=== PATIENT | male | born 1940 | race American Indian/Alaskan Native ===

== ENCOUNTER 2017-11-03 00:48 | Inpatient (IN) | payer MEDICARE ==
[2017-11-03] MEDS ORDERED: PROVENTIL IH ONE (01:02)
--- NOTE | 2017-11-03 01:26 | Emergency Department Report ---
ED Shortness of Breath HPI - General Stated Complaint: MAYRA Time Seen by Provider: 11/03/17 01:02 - History of Present Illness Initial Comments: Patient is a 76-year-old Male past history of COPD who is presenting with shortness of breath. Patient states shortness breath started today. Patient has mild cough. Patient denies any fevers chills body aches at this time. Patient states he used a couple puffs of his albuterol inhaler which did not help. Patient also states that his bilateral legs have been more swollen today and his shortness of breath was worse when he tried to lay down to go to sleep which prompted him to call 911. MD Complaint: shortness of breath, cough Known History Of: COPD Treatments Prior to Arrival: bronchodilator (patient received 1 vial of albuterol nebulized Solu-Medrol and magnesium before arrival. Patient is paramedics state that the patient had decreased breath sounds and was speaking in only 1-2 word sentences) - Related Data Allergies Allergy/AdvReac Type Severity Reaction Status Date / Time No Known Allergies Allergy Unverified 11/03/17 01:36 ED Review of Systems ROS: Stated complaint: MAYRA Other details as noted in HPI Comment: All other systems reviewed and negative ED Physical Exam - General General appearance: alert, in no apparent distress - Head Head exam: Present: atraumatic, normocephalic - Eye Eye exam: Present: normal appearance - ENT ENT exam: Present: mucous membranes moist - Neck Neck exam: Present: normal inspection - Respiratory Respiratory exam: Present: normal lung sounds bilaterally, wheezes (prolonged expiratory phase). Absent: respiratory distress, rales, rhonchi - Cardiovascular Cardiovascular Exam: Present: regular rate, normal rhythm. Absent: systolic murmur, diastolic murmur, rubs, gallop - GI/Abdominal GI/Abdominal exam: Present: soft, distended, normal bowel sounds. Absent: tenderness, guarding, rebound - Rectal Rectal exam: Present: deferred - Extremities Exam Extremities exam: Present: normal inspection, pedal edema (A she has edema to the knees is pitting 2+) - Back Exam Back exam: Present: normal inspection - Neurological Exam Neurological exam: Present: alert, oriented X3 - Psychiatric Psychiatric exam: Present: normal affect, normal mood - Skin Skin exam: Present: warm, dry, intact, normal color. Absent: rash ED Course Vital Signs 11/03/17 11/03/17 11/03/17 01:17 01:28 01:30 Temperature 98 F Pulse Rate 87 80 Respiratory 16 22 Rate Blood Pressure 177/103 O2 Sat by Pulse 91 Oximetry 11/03/17 01:33 Temperature Pulse Rate Respiratory 20 Rate Blood Pressure O2 Sat by Pulse 96 Oximetry ED Medical Decision Making - Lab Data Result diagrams: 11/03/17 01:47 11/03/17 01:43 Lab Results 11/03/17 11/03/17 11/03/17 Range/Units 01:43 01:43 01:43 WBC (4.5-11.0) K/mm3 RBC (3.65-5.03) M/mm3 Hgb (11.8-15.2) gm/dl Hct (35.5-45.6) % MCV (84-94) fl MCH (28-32) pg MCHC (32-34) % RDW (13.2-15.2) % Plt Count (140-440) K/mm3 Lymph % (Auto) (13.4-35.0) % Walsh % (Auto) (0.0-7.3) % Eos % (Auto) (0.0-4.3) % Baso % (Auto) (0.0-1.8) % Lymph # (1.2-5.4) K/mm3 Walsh # (0.0-0.8) K/mm3 Eos # (0.0-0.4) K/mm3 Baso # (0.0-0.1) K/mm3 Seg Neutrophils % (40.0-70.0) % Seg Neutrophils # (1.8-7.7) K/mm3 D-Dimer 439.92 H (0-234) ng/mlDDU Sodium 142 (137-145) mmol/L Potassium 4.8 (3.6-5.0) mmol/L Chloride 108.5 H (98-107) mmol/L Carbon Dioxide 17 L (22-30) mmol/L Anion Gap 21 mmol/L BUN 65 H (9-20) mg/dL Creatinine 5.6 H (0.8-1.5) mg/dL Estimated GFR 12 ml/min BUN/Creatinine Ratio 12 % Glucose 114 H (75-100) mg/dL Calcium 8.3 L (8.4-10.2) mg/dL Total Bilirubin 0.20 (0.1-1.2) mg/dL AST 13 (5-40) units/L ALT 11 (7-56) units/L Alkaline Phosphatase 138 H (35-129) units/L Troponin T 0.020 (0.00-0.029) ng/mL NT-Pro-B Natriuret Pep 2809 H (0-900) pg/mL Total Protein 7.6 (6.3-8.2) g/dL Albumin 3.3 L (3.9-5) g/dL Albumin/Globulin Ratio 0.8 % 11/03/17 Range/Units 01:47 WBC 7.1 (4.5-11.0) K/mm3 RBC 4.98 (3.65-5.03) M/mm3 Hgb 14.6 (11.8-15.2) gm/dl Hct 44.6 (35.5-45.6) % MCV 90 (84-94) fl MCH 29 (28-32) pg MCHC 33 (32-34) % RDW 16.6 H (13.2-15.2) % Plt Count 233 (140-440) K/mm3 Lymph % (Auto) 12.7 L (13.4-35.0) % Walsh % (Auto) 7.8 H (0.0-7.3) % Eos % (Auto) 2.1 (0.0-4.3) % Baso % (Auto) 1.0 (0.0-1.8) % Lymph # 0.9 L (1.2-5.4) K/mm3 Walsh # 0.6 (0.0-0.8) K/mm3 Eos # 0.1 (0.0-0.4) K/mm3 Baso # 0.1 (0.0-0.1) K/mm3 Seg Neutrophils % 76.4 H (40.0-70.0) % Seg Neutrophils # 5.4 (1.8-7.7) K/mm3 D-Dimer (0-234) ng/mlDDU Sodium (137-145) mmol/L Potassium (3.6-5.0) mmol/L Chloride (98-107) mmol/L Carbon Dioxide (22-30) mmol/L Anion Gap mmol/L BUN (9-20) mg/dL Creatinine (0.8-1.5) mg/dL Estimated GFR ml/min BUN/Creatinine Ratio % Glucose (75-100) mg/dL Calcium (8.4-10.2) mg/dL Total Bilirubin (0.1-1.2) mg/dL AST (5-40) units/L ALT (7-56) units/L Alkaline Phosphatase (35-129) units/L Troponin T (0.00-0.029) ng/mL NT-Pro-B Natriuret Pep (0-900) pg/mL Total Protein (6.3-8.2) g/dL Albumin (3.9-5) g/dL Albumin/Globulin Ratio % - Radiology Data Radiology results: report reviewed Cardiomegaly with pulmonary vascular congestion consistent with CHF - Medical Decision Making Condition is a 76-year-old -[place]anese male who is presenting with dyspnea and leg swelling patient once he was on oxygen here after getting a breathing treatment did state that he has had some decreased urinary output he does have a history of congestive heart failure and is on Lasix however he doesn't feel as though the Lasix is having him go to the bathroom very much. Patient states he's been told that his kidneys are weak but does not know what stage of renal insufficiency he has. Patient's. Creatinine today is 6505.6 there is no reference point in the system for him. Patient's BNP is elevated at 2809. Patient will be admitted to the hospitalist service. Lasix has been given to see if the patient can diurese patient is also given neb treatment for his wheezing. Patient will need nephrology consult in the morning. Dr. Hewitt nephrology has been consult and states she will place orders on the patient is a nephrology consult. Patient will be admitted to the hospitalist service at this time. Critical Care Time: Yes Critical care time in (mins) excluding proc time.: 30 Critical care attestation.: If time is entered above; I have spent that time in minutes in the direct care of this critically ill patient, excluding procedure time. ED Disposition Clinical Impression: Respiratory distress, Hypertensive emergency Congestive heart failure Qualifiers: Congestive heart failure type: unspecified Congestive heart failure chronicity : acute on chronic Qualified Code(s): I50.9 - Heart failure, unspecified Renal failure Qualifiers: Renal failure chronicity: acute on chronic Acute renal failure type: unspecified Chronic kidney disease stage: unspecified stage Qualified Code(s): N17.9 - Acute kidney failure, unspecified; N18.9 - Chronic kidney disease, unspecified; N18.9 - Chronic kidney disease, unspecified Disposition: OP ADMIT IP TO THIS HOSP Is pt being admited?: Yes Does the pt Need Aspirin: No Condition: Stable
--- NOTE | 2017-11-03 01:32 | XRay Report ---
FINAL REPORT EXAM: XR CHEST 1V AP HISTORY: Dyspnea TECHNIQUE: A portable upright view the chest was submitted. There are no previous studies available for comparison. FINDINGS: The heart is [id number] enlarged. The lungs are diffusely congested. There is patchy airspace disease in both lung bases and in the perihilar areas. The skeletal structures reveal generalized osteoporosis. IMPRESSION: [id number]-[id number] cardiomegaly with pulmonary vascular congestion. Patchy airspace disease in both lung bases.
[2017-11-03 02:05] LABS: Basophils # (Auto) 0.1 K/mm3 (0.0-0.1); Eosinophils # (Auto) 0.1 K/mm3 (0.0-0.4); Eosinophils % (Auto) 2.1 % (0.0-4.3); Hematocrit 44.6 % (35.5-45.6); Hemoglobin 14.6 gm/dl (11.8-15.2); Lymphocytes # (Auto) 0.9 K/mm3 (1.2-5.4); Lymphocytes % (Auto) 12.7 % (13.4-35.0); Mean Corpuscular HGB Conc 33 % (32-34); Mean Corpuscular Hemoglobin 29 pg (28-32); Mean Corpuscular Volume 90 fl (84-94); Monocytes # (Auto) 0.6 K/mm3 (0.0-0.8); Monocytes % (Auto) 7.8 % (0.0-7.3); Platelet Count 233 K/mm3 (140-440); Red Blood Count 4.98 M/mm3 (3.65-5.03); Red Cell Distribution Width 16.6 % (13.2-15.2)
[2017-11-03] MEDS ORDERED: LASIX IV ONE (02:14)
[2017-11-03 02:20] LABS: Albumin 3.3 g/dL (3.9-5); Calcium 8.3 mg/dL (8.4-10.2)
--- NOTE | 2017-11-03 07:49 | History and Physical Report ---
History of Present Illness Date of examination: 11/03/17 Date of admission: 11/03/17 03:27 Chief complaint: Shortness of breath History of present illness: 76 year old -[place]ajik male with past medical history significant for CHF , hypertension presented to the emergency department complaining of shortness of breath that started last night. Shortness of breath happened while the patient is trying to go to bed. Shortness of breath is getting worse with exertion no alleviating factors identified. Patient admitted for wheezing, cough and bilateral leg swelling. Patient denied chest pain, nausea, vomiting. Patient had history of CHF and stop taking medications 2 years ago. Didn't see a doctor for the last 2 years. REVIEW OF SYSTEMS: GENERAL: no weight change, no fatigue, no fever HEAD: no head ache EYES: no blurry vision, no acute visual loss EARS: no hearing loss, no discharge, no earache NOSE: no stuffiness, no sneezing, no discharge MOUTH, THROAT AND NECK: no bleeding gums, no sore throat, no swollen neck CARDIAC: no palpitations, + dyspnea on exertion, no orthopnea, no PND, + edema, no chest pain RESPIRATORY: + shortness of breath, + wheeze, dry cough, no sputum, no hemoptysis, no asthma GI: no decreased appetite, no nausea, no vomiting, no dysphagia, no diarrhea, no constipation, no abdominal pain URINARY: no change in frequency, no urgency, no polyuria, no hematuria, no incontinence MUSCULOSKELETAL: no muscle weakness, no pain, no joint stiffness NEUROLOGIC: no loss of sensation/numbness, no tingling, no tremors, no weakness/ paralysis HEMATOLOGIC: no anemia, no easy bruising SKIN: no rashes ENDOCRINE: no heat/cold intolerance, no polyuria, no polydipsia, no thyroid problems, no diabetes PSYCHIATRIC: no anxiety, no depression, no suicidal ideations Past History Past Medical History: heart failure, hypertension Past Surgical History: No surgical history Social history: smoking (half pack cigarettes a day), full code. denies: alcohol abuse, prescription drug abuse, IV drug use Family history: no significant family history Medications and Allergies Allergies Allergy/AdvReac Type Severity Reaction Status Date / Time No Known Allergies Allergy Unverified 11/03/17 01:36 Home Medications Medication Instructions Recorded Confirmed Last Taken Type Acetaminophen [Shake That Ache] 500 mg PO Q6H 11/03/17 11/03/17 Unknown History Albuterol Sulfate [Ventolin HFA] 2 puff IH Q4H PRN 11/03/17 11/03/17 11/02/17 History Allopurinol 300 mg PO DAILY 11/03/17 11/03/17 11/02/17 History Carvedilol [Coreg] 25 mg PO BID 11/03/17 11/03/17 11/02/17 History Fluticasone [Flonase] 1 spray NS QDAY 11/03/17 11/03/17 11/02/17 History Loratadine [Claritin] 10 mg PO DAILY 11/03/17 11/03/17 11/02/17 History Losartan [Cozaar] 100 mg PO QDAY 11/03/17 11/03/17 11/02/17 History Tamsulosin [Flomax] 0.4 mg PO QDAY 11/03/17 11/03/17 11/02/17 History amLODIPine [Norvasc] 10 mg PO DAILY 11/03/17 11/03/17 11/02/17 History Active Meds: Active Medications Heparin Sodium (Porcine) (Heparin) 5,000 unit SUB-Q Q8HR LYUDMILA Exam - Physical Exam Narrative exam: Not in cardiopulmonary distress. The patient appeared well nourished and normally developed. Vital signs as documented. Head exam is unremarkable. No scleral icterus . Neck is without jugular venous distension, thyromegaly, or carotid bruits. Lungs are clear to auscultation. Cardiac exam reveals regular rate and Rhythm. Abdominal exam reveals normal bowel sounds, no masses, no organomegaly and no aortic enlargement. Extremities +2 pedal and pretibial edema. 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 No focal weakness. - Constitutional Vitals: Temp Pulse Resp BP Pulse Ox 98 F 80 20 177/103 96 11/03/17 01:28 11/03/17 01:30 11/03/17 01:33 11/03/17 01:30 11/03/17 01:33 Results - Labs CBC & Chem 7: 11/03/17 01:47 11/03/17 01:43 Labs: Laboratory Last Values WBC 7.1 K/mm3 (4.5-11.0) 11/03/17 01:47 RBC 4.98 M/mm3 (3.65-5.03) 11/03/17 01:47 Hgb 14.6 gm/dl (11.8-15.2) 11/03/17 01:47 Hct 44.6 % (35.5-45.6) 11/03/17 01:47 MCV 90 fl (84-94) 11/03/17 01:47 MCH 29 pg (28-32) 11/03/17 01:47 MCHC 33 % (32-34) 11/03/17 01:47 RDW 16.6 % (13.2-15.2) H 11/03/17 01:47 Plt Count 233 K/mm3 (140-440) 11/03/17 01:47 Lymph % (Auto) 12.7 % (13.4-35.0) L 11/03/17 01:47 Mcpherson % (Auto) 7.8 % (0.0-7.3) H 11/03/17 01:47 Eos % (Auto) 2.1 % (0.0-4.3) 11/03/17 01:47 Baso % (Auto) 1.0 % (0.0-1.8) 11/03/17 01:47 Lymph # 0.9 K/mm3 (1.2-5.4) L 11/03/17 01:47 Mcpherson # 0.6 K/mm3 (0.0-0.8) 11/03/17 01:47 Eos # 0.1 K/mm3 (0.0-0.4) 11/03/17 01:47 Baso # 0.1 K/mm3 (0.0-0.1) 11/03/17 01:47 Seg Neutrophils % 76.4 % (40.0-70.0) H 11/03/17 01:47 Seg Neutrophils # 5.4 K/mm3 (1.8-7.7) 11/03/17 01:47 D-Dimer 439.92 ng/mlDDU (0-234) H 11/03/17 01:43 Sodium 142 mmol/L (137-145) 11/03/17 01:43 Potassium 4.8 mmol/L (3.6-5.0) 11/03/17 01:43 Chloride 108.5 mmol/L (98-107) H 11/03/17 01:43 Carbon Dioxide 17 mmol/L (22-30) L 11/03/17 01:43 Anion Gap 21 mmol/L 11/03/17 01:43 BUN 65 mg/dL (9-20) H 11/03/17 01:43 Creatinine 5.6 mg/dL (0.8-1.5) H 11/03/17 01:43 Estimated GFR 12 ml/min 11/03/17 01:43 BUN/Creatinine Ratio 12 % 11/03/17 01:43 Glucose 114 mg/dL (75-100) H 11/03/17 01:43 Calcium 8.3 mg/dL (8.4-10.2) L 11/03/17 01:43 Total Bilirubin 0.20 mg/dL (0.1-1.2) 11/03/17 01:43 AST 13 units/L (5-40) 11/03/17 01:43 ALT 11 units/L (7-56) 11/03/17 01:43 Alkaline Phosphatase 138 units/L (35-129) H 11/03/17 01:43 Troponin T 0.020 ng/mL (0.00-0.029) 11/03/17 01:43 NT-Pro-B Natriuret Pep 2809 pg/mL (0-900) H 11/03/17 01:43 Total Protein 7.6 g/dL (6.3-8.2) 11/03/17 01:43 Albumin 3.3 g/dL (3.9-5) L 11/03/17 01:43 Albumin/Globulin Ratio 0.8 % 11/03/17 01:43 Assessment and Plan Assessment and plan: Acute hypoxic respiratory failure - oxygen support - VQ scan probability for PE Acute on chronic unspecified CHF - Patient is on IV Lasix, beta drew, cardiology consult obtained, echo Hypertensive urgency - H and is on amlodipine, carvedilol, hydralazine when necessary Acute on chronic renal failure - Nephrology consult - We'll check BMP in the morning Malnutrition - Nutrition consult Medication noncompliance - Patient is counseled about medication adherence Tobacco abuse - Patient is counseled about cessation of smoking DVT prophylaxis - Lovenox Disposition - Admit to medical floor Advance Directives: Yes VTE prophylaxis?: Chemical Plan of care discussed with patient/family: Yes
[2017-11-03] MEDS ORDERED: APRESOLINE IV PRN (08:00)
--- NOTE | 2017-11-03 08:06 | Ultrasound Report ---
FINAL REPORT EXAM: US RENAL BILAT HISTORY: ELISE r/o obstruction/retention TECHNIQUE: Routine sonographic evaluation was obtained of the kidneys and bladder along with Doppler interrogation. FINDINGS: The right kidney measures 10 cm x 4.6 cm x 5.4 cm. The cortical echotexture is increased compatible with underlying renal medical disease. The cortical thickness is 1.6 cm there are multiple cortical cysts in the right kidney measuring up to 1.9 cm in diameter. The right ureter is dilated measuring up to 1.1 cm. The left kidney measures 10.3 cm x 5.5 cm x 5.8 cm. There is several cortical cysts left kidney measure up to 1.3 cm in diameter. There is no evidence of hydronephrosis. The cortical thickness is 1.4 cm. The bladder is distended. Along the floor of the bladder is a hypoechoic solid nodule measuring 2.8 cm x 1.7 cm x 3 cm. IMPRESSION: Increased cortical echotexture both kidneys compatible with underlying renal medical disease. Dilated right ureter measures 1.1 cm. As to whether this is related to reflux versus hydronephrosis related to a distal ureteral stone is uncertain. Benign cortical cysts in both kidneys. 2.8 cm x 1.7 cm x 3 cm hypoechoic solid nodule along the floor of the bladder. Cystoscopic evaluation is strongly recommended.
[2017-11-03] MEDS: HEPARIN SUB-Q SCH ×3 (08:09→22:18)
[2017-11-03 09:19] LABS: Bacteria,Urine 2+ /HPF (Negative); Bilirubin,Urine NEG (Negative); Blood,Urine SM (Negative); Color,Urine Yellow (Yellow); Urobilinogen,Urine < 2.0 mg/dL (<2.0)
[2017-11-03] MEDS ORDERED: NORVASC PO SCH (10:00)
--- NOTE | 2017-11-03 10:23 | Nuclear Medicine Report ---
LUNG SCAN, VENTILATION AND PERFUSION: History: Short of breath. Technique: 5mci of Tc99m MAA was infused for the perfusion images. 15mci XE 133 gas was inhaled for the ventilatory images. Correlation is made with a chest x-ray dated 11/03/17. Findings: Inhalation of Xenon gas demonstrates a normal distribution of the activity throughout both lungs. The wash out phases show no focal retention of activity. After injection of Technetium 99m macroaggregated albumin gamma camera imaging of the lungs in multiple projections demonstrates normal pulmonary contours with a homogeneous distribution of activity. No focal areas of perfusion deficiency are identified. IMPRESSION: Low probability for pulmonary embolus.
[2017-11-03] MEDS ORDERED: LOPRESSOR PO SCH (11:00)
[2017-11-03 12:07] LABS: Creatinine,Urine 64.6 mg/dL (0.1-20.0); Protein/Creatinine Ratio,Urine 3.1
--- NOTE | 2017-11-03 12:13 | Consultation ---
History of Present Illness Consult date: 11/03/17 Consult reason: congestive heart failure History of present illness: The patient claims that he started experiencing shortness of breath last night. He has no history of orthopnea or chest pain. He mentioned that has a history of asthma. However, he is also a chronic cigarette smoker. He also admits to a history of CKD. His BP was significantly elevated at presentation. As part of his evaluation, a v-q scan was of low probability for pulmonary embolism. His chest X-Ray showed pulmonary edema. On the monitor, he appears to be in atrial fibrillation with a controlled ventricular rate. Exact duration of this is uncertain. Past History Past Medical History: hypertension, hyperlipidemia, renal failure, other (asthma ) Past Surgical History: No surgical history Social history: (with 3 children), , smoking, other (he drinks alcohol socially) Family history: no significant family history Medications and Allergies Allergies Allergy/AdvReac Type Severity Reaction Status Date / Time No Known Allergies Allergy Unverified 11/03/17 01:36 Home Medications Medication Instructions Recorded Confirmed Last Taken Type Acetaminophen [Shake That Ache] 500 mg PO Q6H 11/03/17 11/03/17 Unknown History Albuterol Sulfate [Ventolin HFA] 2 puff IH Q4H PRN 11/03/17 11/03/17 11/02/17 History Allopurinol 300 mg PO DAILY 11/03/17 11/03/17 11/02/17 History Carvedilol [Coreg] 25 mg PO BID 11/03/17 11/03/17 11/02/17 History Fluticasone [Flonase] 1 spray NS QDAY 11/03/17 11/03/17 11/02/17 History Loratadine [Claritin] 10 mg PO DAILY 11/03/17 11/03/17 11/02/17 History Losartan [Cozaar] 100 mg PO QDAY 11/03/17 11/03/17 11/02/17 History Tamsulosin [Flomax] 0.4 mg PO QDAY 11/03/17 11/03/17 11/02/17 History amLODIPine [Norvasc] 10 mg PO DAILY 11/03/17 11/03/17 11/02/17 History Active Meds: Active Medications Amlodipine Besylate (Norvasc) 10 mg PO QDAY LYUDMILA Last Admin: 11/03/17 09:52 Dose: 10 mg Heparin Sodium (Porcine) (Heparin) 5,000 unit SUB-Q Q8HR [facility] Last Admin: 11/03/17 08:09 Dose: Not Given Hydralazine HCl (Apresoline) 50 mg PO TID [facility] Metoprolol Tartrate (Lopressor) 50 mg PO BID [facility] Last Admin: 11/03/17 11:53 Dose: 50 mg Review of Systems Constitutional: no fever, no chills Ears, nose, mouth and throat: no ear pain, no ear discharge, no hoarseness, no sore throat Cardiovascular: edema, shortness of breath, dyspnea on exertion, no chest pain, no orthopnea, no palpitations Respiratory: shortness of breath, dyspnea on exertion, no cough, no hemoptysis Gastrointestinal: no abdominal pain, no nausea, no vomiting, no diarrhea, no constipation Genitourinary Male: no dysuria, no hematuria, no urinary frequency Rectal: no pain, no bleeding Musculoskeletal: no neck stiffness, no neck pain, no myalgias Integumentary: no rash, no pruritis Neurological: no weakness, no parathesias, no numbness, no tingling, no headaches Endocrine: no cold intolerance Hematologic/Lymphatic: no easy bruising, no easy bleeding Allergic/Immunologic: no urticaria, no angioedema Physical Examination Vital Signs Last Vital Signs Temp 97.9 F 11/03/17 07:30 Pulse 80 11/03/17 11:53 Resp 18 11/03/17 11:00 BP 161/97 11/03/17 11:53 Pulse Ox 97 11/03/17 09:29 General appearance: no acute distress HEENT: Positive: EOMI, Normocephaly, Mucus Membranes Moist Neck: Positive: neck supple, JVD/HJR (elevated) Cardiac: Positive: Reg Rate and Rhythm, S1/S2 Lungs: Positive: Rhonchi Neuro: Positive: Grossly Intact Abdomen: Positive: Soft, Active Bowel Sounds. Negative: Tender Skin: Positive: Clear. Negative: Rash Musculoskeletal: Normal Range of Motion Extremities: Present: +2 Edema (pitting bilateral leg edema) Results 11/03/17 01:47 11/03/17 01:43 Cardiac Enzymes 11/03/17 Range/Units 01:43 AST 13 (5-40) units/L CBC 11/03/17 Range/Units 01:47 WBC 7.1 (4.5-11.0) K/mm3 RBC 4.98 (3.65-5.03) M/mm3 Hgb 14.6 (11.8-15.2) gm/dl Hct 44.6 (35.5-45.6) % Plt Count 233 (140-440) K/mm3 Lymph # 0.9 L (1.2-5.4) K/mm3 [place] # 0.6 (0.0-0.8) K/mm3 Eos # 0.1 (0.0-0.4) K/mm3 Baso # 0.1 (0.0-0.1) K/mm3 Comprehensive Metabolic Panel 11/03/17 Range/Units 01:43 Sodium 142 (137-145) mmol/L Potassium 4.8 (3.6-5.0) mmol/L Chloride 108.5 H (98-107) mmol/L Carbon Dioxide 17 L (22-30) mmol/L BUN 65 H (9-20) mg/dL Creatinine 5.6 H (0.8-1.5) mg/dL Glucose 114 H (75-100) mg/dL Calcium 8.3 L (8.4-10.2) mg/dL AST 13 (5-40) units/L ALT 11 (7-56) units/L Alkaline Phosphatase 138 H (35-129) units/L Total Protein 7.6 (6.3-8.2) g/dL Albumin 3.3 L (3.9-5) g/dL - Imaging and Cardiology EKG: image reviewed EKG interpretations - Telemetry EKG Rhythm: Atrial Fibrillation - EKG Supraventricular dysrhythmia: atrial fibrillation Assessment and Plan Intravenous diuretics; I will optimize antihypertensive regimen; Initiate AV blocking medications and anticoagulation; obtain echocardiogram; consider nephrology consultation - Patient Problems (1) Acute heart failure Current Visit: Yes Status: Acute (2) Hypertensive emergency Current Visit: Yes Status: Acute (3) Atrial fibrillation Current Visit: Yes Status: Acute (4) CKD (chronic kidney disease) Current Visit: Yes Status: Chronic (5) Tobacco abuse Current Visit: Yes Status: Chronic (6) Asthma Current Visit: Yes Status: Chronic
[2017-11-03] MEDS: LOPRESSOR PO SCH (13:48)
[2017-11-03] MEDS: APRESOLINE PO SCH ×2 (13:50→22:17)
[2017-11-03] MEDS ORDERED: PROAIR IH PRN (16:47)
[2017-11-03] MEDS ORDERED: PROVENTIL IH PRN (17:55)
--- NOTE | 2017-11-03 18:38 | Consultation ---
History of Present Illness - History of Present Illness Thank you for the consultation patient was evaluated today, around 3 PM in the afternoon Source of information; History of presenting illness; Patient is a 76-year-old -[place] African male who is currently being followed by his physician in outpatient setting he has not seen any grit blaster for last several months remotely he was seen by Deanna Connors who told him that his kidney function is deteriorating. Patient has been told to be nearing dialysis he presented to the hospital with complaints of increasing shortness of breath swelling in both lower extremity some information was also obtained from patient's grand daughter, patient also indicates that he has been taking off-and-on Goody's powder for last 1 year or so He has no known history of hepatitis B C lupus hepatitis or paraproteinemias No history of any skin rashes fever or chills or epistaxis No significant difficulty voiding patient was taking losartan in the outpatient setting as well, granddaughter is willing to bring his renal records from the outpatient physician Past medical history is significant for Hypertension congestive heart failure COPD Chronic kidney disease Edema Gout hyperuricemia Benign prostatic hyperplasia likely by history Current allergies: None Home medication present medication: Reviewed Social history no history of any alcohol drug tobacco use Family history: Noncontributory for renal related disorder Labs and x-rays: Were reviewed from the current chart Physical examination General: No acute distress HEENT: Oral mucosa moist no pharyngeal erythema no pallor or icterus no uremic order Neck: Supple no evidence of any thyromegaly trachea midline no JVD Chest: bilateral diminished posteriorly with some wheezing and crackles Heart: Regular rate and rhythm S1-S2 heard no S3-S4 Abdomen: Soft nontender no renal bruit no CVA tenderness no suprapubic fullness no organomegaly Extremity: 2+ bilateral edema dry skin no peripheral cyanosis pulses palpable Neurological: Alert awake follows command grossly nonfocal examination Back: Nontender thoracolumbar spine Musculoskeletal: No joint effusion noted Skin: No petechial rash/noted Assessment and plan Renal failure: Severe no acute emergent indication for renal replacement therapy at the moment patient does have history of advanced renal failure according to granddaughter he has been followed by the [facility] physician, and remotely has been seen by a grit blaster Dr. Connors who told him that he is nearing dialysis, patient has been using Goody's powder off and on for more than a year Hypertension patient was using losartan outpatient setting which should be withheld for now congestive heart failure: Being evaluated by cardiology History of underlying COPD? Underlying pulmonary hypertension We'll look for any reversible causes for renal failure at this time order a renal workup renal ultrasonogram If renal function fails to improve, and patient continues to be symptomatic he may be considered for initiation of renal replacement therapy Congestive heart failure with 2+ edema check for proteinuria, gentle diuresis as tolerated History of gout hyperuricemia currently on allopurinol Renal prognosis overall appears to be guarded to poor at this time Family extensively counseled and educated along with the patient at the bedside and all questions were answered, advised to bring renal function results from the physician taking care of him in outpatient setting We will continue to follow make recommendation for renal standpoint Nature and severity of renal-related issues were discussed with patient's granddaughter, all questions were answered and simple [place] Patient/granddaughter does have good understanding about renal-related issues. Counseled and educated to get further education from [employer] and related links, and upon discharge to make a follow-up appointment in the office We'll continue to follow and make recommendations from renal standpoint. If you have any questions please feel free to contact me at [phone] Thank you for the consultation. Past History Past Medical History: heart failure, hypertension Past Surgical History: No surgical history Social history: smoking (half pack cigarettes a day), full code. denies: alcohol abuse, prescription drug abuse, IV drug use Family history: no significant family history Medications and Allergies Allergies Allergy/AdvReac Type Severity Reaction Status Date / Time No Known Allergies Allergy Unverified 11/03/17 01:36 Home Medications Medication Instructions Recorded Confirmed Last Taken Type Acetaminophen [Shake That Ache] 500 mg PO Q6H 11/03/17 11/03/17 Unknown History Albuterol Sulfate [Ventolin HFA] 2 puff IH Q4H PRN 11/03/17 11/03/17 11/02/17 History Allopurinol 300 mg PO DAILY 11/03/17 11/03/17 11/02/17 History Carvedilol [Coreg] 25 mg PO BID 11/03/17 11/03/17 11/02/17 History Fluticasone [Flonase] 1 spray NS QDAY 11/03/17 11/03/1718 History Loratadine [Claritin] 10 mg PO DAILY 11/03/17 11/03/17 11/02/17 History Losartan [Cozaar] 100 mg PO QDAY 11/03/17 11/03/17 11/02/17 History Tamsulosin [Flomax] 0.4 mg PO QDAY 11/03/17 11/03/17 11/02/17 History amLODIPine [Norvasc] 10 mg PO DAILY 11/03/17 11/03/17 11/02/17 History Active Meds: Active Medications Acetaminophen (Tylenol) 500 mg PO Q6HR [facility] Albuterol (Proair) 2 puff IH Q4H PRN PRN Reason: Shortness Of Breath Albuterol (Proventil) 2.5 mg IH Q4HRT PRN PRN Reason: Shortness Of Breath Allopurinol (Zyloprim) 150 mg PO DAILY [facility] Amlodipine Besylate (Norvasc) 10 mg PO QDAY [facility] Last Admin: 11/03/17 09:52 Dose: 10 mg Fluticasone Propionate (Flonase) 50 mcg NS QDAY [facility] Heparin Sodium (Porcine) (Heparin) 5,000 unit SUB-Q Q8HR [facility] Last Admin: 11/03/17 13:50 Dose: 5,000 unit Hydralazine HCl (Apresoline) 50 mg PO TID [facility] Last Admin: 11/03/17 13:50 Dose: 50 mg Metoprolol Tartrate (Lopressor) 50 mg PO Q6HR [facility] Last Admin: 11/03/17 13:48 Dose: Not Given Tamsulosin HCl (Flomax) 0.4 mg PO QDAY [facility] Exam - Vital Signs Vital signs: Vital Signs Pulse Resp 87 16 11/03/17 01:17 11/03/17 01:17 Results - Lab Results 11/03/17 01:47 11/03/17 01:43 Most recent lab results Calcium 8.3 mg/dL (8.4-10.2) L 11/03/17 01:43 Urine Creatinine 64.6 mg/dL (0.1-20.0) H 11/03/17 09:06 Urine Sodium 114 mmol/L 11/03/17 09:06 Urine Total Protein 200 mg/dL (5-11.8) H 11/03/17 09:06
[2017-11-04] MEDS: LOPRESSOR PO SCH ×5 (00:43→23:49)
[2017-11-04] MEDS: TYLENOL PO SCH ×5 (00:43→23:49)
[2017-11-04] MEDS: HEPARIN SUB-Q SCH (06:59)
--- NOTE | 2017-11-04 09:12 | Progress Note ---
Subjective Interval history: Patient was seen today for follow-up on multiple renal related issues Events of this hospitalization noted Shortness of breath is improving no new chemistries today Vitals labs intake output medications were reviewed Social history: Reviewed Allergies: Reviewed Family history: Reviewed Physical examination HEENT: Oral mucosa moist no pallor or icterus Neck: Supple no JVD Chest: Clear to auscultation anteriorly CVS: Regular rate and rhythm S1 and S2 heard Abdomen: Soft nontender no suprapubic masses no organomegaly appreciable Extremity: Dry skin 2+ peripheral edema Musculoskeletal: No joint effusion noted in knees and ankle Neurological: Alert awake Dermatology: No petechial rashes Psychiatry: No evidence of any agitation and aggression noted Assessment and plan Renal failure severe: Needs close monitoring follow-up on the labs renal imaging , need to review old records to decide about further care plan likely we are dealing with case of advanced renal failure but there is no acute or emergent indication for renal replacement therapy High-grade proteinuria 3.1 g noted, likely also causing peripheral swelling edema Metabolic acidosis: To monitor and follow Hypocalcemia corrected calcium appears to be normal Congestive heart failure-like picture; currently being treated by cardiology Follow-up on the pending labs/no emergent indication for renal placement therapy Plan of care has been discussed with patient as well as family member during this admission Renal prognosis guarded to poor Patient was adequately counseled and educated regarding multiple renal related issues Pertinent lab findings were discussed with patient, patient does exhibit good understanding of renal issues We'll continue to follow and make recommendation from renal standpoint Objective - Vital Signs Vital signs: Vital Signs - 12hr 11/03/17 11/03/17 11/04/17 23:50 23:51 03:51 Temperature 97.9 F 97.3 F L Pulse Rate 77 Respiratory 18 18 20 Rate Blood Pressure 142/77 142/71 Blood Pressure [Right] O2 Sat by Pulse 96 Oximetry 11/04/17 11/04/17 06:25 09:06 Temperature 97.2 F L Pulse Rate 70 78 Respiratory 18 Rate Blood Pressure Blood Pressure 159/80 [Right] O2 Sat by Pulse 96 Oximetry - Lab 11/03/17 01:47 11/03/17 01:43 Most recent lab results Calcium 8.3 mg/dL (8.4-10.2) L 11/03/17 01:43 Urine Creatinine 64.6 mg/dL (0.1-20.0) H 11/03/17 09:06 Urine Sodium 114 mmol/L 11/03/17 09:06 Urine Total Protein 200 mg/dL (5-11.8) H 11/03/17 09:06
[2017-11-04] MEDS ORDERED: ZYLOPRIM PO SCH (10:00)
[2017-11-04] MEDS ORDERED: LASIX PO SCH (10:30)
[2017-11-04] MEDS: APRESOLINE PO SCH ×3 (10:49→21:32)
[2017-11-04] MEDS: FLOMAX PO SCH (10:51)
[2017-11-04] MEDS: ZYLOPRIM PO SCH (10:51)
[2017-11-04 11:34] LABS: Calcium 8.4 mg/dL (8.4-10.2)
[2017-11-04 11:44] LABS: Hepatitis A Antibody IgM Non-Reactive (NonReactive); Hepatitis B Core IgM Non-Reactive (NonReactive); Hepatitis B Surface Antigen Non-Reactive (Negative); Hepatitis C Virus Antibody Non-Reactive (NonReactive)
--- NOTE | 2017-11-04 12:01 | Progress Note ---
Assessment and Plan Echo reviewed - EF 50-55%, impaired relaxation, mild MR, mild TR, RVSP 56mmHg, mod pulm HTN. Cont lopressor and hydralazine. Will defer diuresis to nephrology given renal failure. Initiate systemic anticoagulation in regards to atrial fibrillation - will start heparin gtt and plan to convert to OAC prior to discharge. The patient has been seen in conjunction with Dr. Schmidt who agrees with the assessment and plan of care. - Patient Problems (1) Acute diastolic HF (heart failure) Current Visit: Yes Status: Acute (2) Atrial fibrillation Current Visit: Yes Status: Acute (3) Hypertensive emergency Current Visit: Yes Status: Acute (4) CKD (chronic kidney disease) Current Visit: Yes Status: Chronic (5) Pulmonary HTN Current Visit: Yes Status: Chronic (6) Tobacco abuse Current Visit: Yes Status: Chronic Subjective Date of service: 11/04/17 Principal diagnosis: HF; AFib Interval history: pt resting comfortably in bed, no current complaints. Tele reviewed - pt remains in AFib with CVR. Objective Last Vital Signs Temp 97.2 F L 11/04/17 09:06 Pulse 78 11/04/17 10:49 Resp 18 11/04/17 09:06 BP 159/80 11/04/17 10:49 Pulse Ox 96 11/04/17 09:06 - Physical Examination General: No Apparent Distress HEENT: Positive: EOMI, Normocephaly, Mucus Membranes Moist Neck: Positive: neck supple, JVD/HJR (elevated) Cardiac: Positive: irregularly irregular, S1/S2 Lungs: Positive: Decreased Breath Sounds Neuro: Positive: Grossly Intact Abdomen: Positive: Soft, Active Bowel Sounds. Negative: Tender Skin: Positive: Clear. Negative: Rash Musculoskeletal: Normal Range of Motion Extremities: Present: +2 Edema (pitting bilateral leg edema) - Labs and Meds Comprehensive Metabolic Panel 11/04/17 Range/Units 10:41 Sodium 142 (137-145) mmol/L Potassium 5.1 H (3.6-5.0) mmol/L Chloride 106.5 (98-107) mmol/L Carbon Dioxide 22 (22-30) mmol/L BUN 69 H (9-20) mg/dL Creatinine 5.6 H (0.8-1.5) mg/dL Glucose 109 H (75-100) mg/dL Calcium 8.4 (8.4-10.2) mg/dL - Imaging and Cardiology EKG: image reviewed - Telemetry EKG Rhythm: Atrial Fibrillation
[2017-11-04] MEDS ORDERED: HEPARIN 10,000 UNITS/10 ML IV ONE ×2 (12:06→17:00)
[2017-11-04 13:25] LABS: Hematocrit 45.2 % (35.5-45.6); Hemoglobin 14.2 gm/dl (11.8-15.2)
[2017-11-04 13:34] LABS: INR 0.98 (0.87-1.13)
[2017-11-04 13:35] LABS: Partial Thromboplastin Time 30.1 Sec. (24.2-36.6)
[2017-11-04] MEDS: FLONASE NS SCH (16:45)
[2017-11-04] MEDS ORDERED: HEPARIN/ 0.45% NACL-25,000 UNIT/500 ML 25,000 UNIT/500 ML BAG IV SCH (17:00)
[2017-11-04] MEDS: HEPARIN/ 0.45% NACL-25,000 UNIT/500 ML 25,000 UNIT/500 ML BAG IV SCH (17:18)
--- NOTE | 2017-11-04 17:24 | Progress Note ---
Assessment and Plan Assessment and plan: Acute hypoxic respiratory failure - oxygen support - VQ scan probability for PE Acute on chronic diastolic CHF - beta drew, cardiology consult obtained, echo showed diastolic CHF - Lasix D/yahaira because of CKD Hypertensive urgency - Hydralazine and is on amlodipine, carvedilol, hydralazine when necessary Acute on chronic renal failure - Nephrology consult - Cr is still the same - Leave the decision for nephrology about diuresis Atrial fibrillation - Patient is on anticoagulation Malnutrition - Nutrition consult Medication noncompliance - Patient is counseled about medication adherence Tobacco abuse - Patient is counseled about cessation of smoking DVT prophylaxis - on therapeutic heparin Disposition - continue inpatient care History Interval history: Patient was seen and evaluated this morning, patient's breathing is getting better. Hospitalist Physical - Physical exam Narrative exam: Not in cardiopulmonary distress. The patient appeared well nourished and normally developed. Vital signs as documented. Head exam is unremarkable. No scleral icterus . Neck is without jugular venous distension, thyromegaly, or carotid bruits. Lungs are clear to auscultation. Cardiac exam reveals regular rate and Rhythm. Abdominal exam reveals normal bowel sounds, no masses, no organomegaly and no aortic enlargement. Extremities +2 pedal and pretibial edema. [employer]TI[employer]ER: Alert and oriented 3. No focal weakness. - Constitutional Vitals: Temp Pulse Resp BP Pulse Ox 97.8 F 64 20 156/91 100 11/04/17 13:09 11/04/17 16:42 11/04/17 13:09 11/04/17 16:42 11/04/17 14:53 General appearance: Present: no acute distress Results - Labs CBC & Chem 7: 11/04/17 12:52 11/04/17 10:41 Labs: Laboratory Last Values WBC 7.1 K/mm3 (4.5-11.0) 11/03/17 01:47 RBC 4.98 M/mm3 (3.65-5.03) 11/03/17 01:47 Hgb 14.2 gm/dl (11.8-15.2) 11/04/17 12:52 Hct 45.2 % (35.5-45.6) 11/04/17 12:52 MCV 90 fl (84-94) 11/03/17 01:47 MCH 29 pg (28-32) 11/03/17 01:47 MCHC 33 % (32-34) 11/03/17 01:47 RDW 16.6 % (13.2-15.2) H 11/03/17 01:47 Plt Count 250 K/mm3 (140-440) 11/04/17 12:52 Lymph % (Auto) 12.7 % (13.4-35.0) L 11/03/17 01:47 [place] % (Auto) 7.8 % (0.0-7.3) H 11/03/17 01:47 Eos % (Auto) 2.1 % (0.0-4.3) 11/03/17 01:47 Baso % (Auto) 1.0 % (0.0-1.8) 11/03/17 01:47 Lymph # 0.9 K/mm3 (1.2-5.4) L 11/03/17 01:47 [place] # 0.6 K/mm3 (0.0-0.8) 11/03/17 01:47 Eos # 0.1 K/mm3 (0.0-0.4) 11/03/17 01:47 Baso # 0.1 K/mm3 (0.0-0.1) 11/03/17 01:47 Seg Neutrophils % 76.4 % (40.0-70.0) H 11/03/17 01:47 Seg Neutrophils # 5.4 K/mm3 (1.8-7.7) 11/03/17 01:47 PT 13.5 Sec. (12.2-14.9) 11/04/17 12:52 INR 0.98 (0.87-1.13) 11/04/17 12:52 APTT 30.1 Sec. (24.2-36.6) 11/04/17 12:52 D-Dimer 439.92 ng/mlDDU (0-234) H 11/03/17 01:43 Sodium 142 mmol/L (137-145) 11/04/17 10:41 Potassium 5.1 mmol/L (3.6-5.0) H 11/04/17 10:41 Chloride 106.5 mmol/L (98-107) 11/04/17 10:41 Carbon Dioxide 22 mmol/L (22-30) 11/04/17 10:41 Anion Gap 19 mmol/L 11/04/17 10:41 BUN 69 mg/dL (9-20) H 11/04/17 10:41 Creatinine 5.6 mg/dL (0.8-1.5) H 11/04/17 10:41 Estimated GFR 12 ml/min 11/04/17 10:41 BUN/Creatinine Ratio 12 % 11/04/17 10:41 Glucose 109 mg/dL (75-100) H 11/04/17 10:41 Calcium 8.4 mg/dL (8.4-10.2) 11/04/17 10:41 Phosphorus 3.80 mg/dL (2.5-4.5) 11/04/17 10:41 Total Bilirubin 0.20 mg/dL (0.1-1.2) 11/03/17 01:43 AST 13 units/L (5-40) 11/03/17 01:43 ALT 11 units/L (7-56) 11/03/17 01:43 Alkaline Phosphatase 138 units/L (35-129) H 11/03/17 01:43 Troponin T 0.020 ng/mL (0.00-0.029) 11/03/17 01:43 NT-Pro-B Natriuret Pep 2809 pg/mL (0-900) H 11/03/17 01:43 Total Protein 7.6 g/dL (6.3-8.2) 11/03/17 01:43 Albumin 3.3 g/dL (3.9-5) L 11/03/17 01:43 Albumin/Globulin Ratio 0.8 % 11/03/17 01:43 PTH Intact 253.2 pg/mL (15-65) H 11/04/17 10:41 Urine Color Yellow (Yellow) 11/03/17 09:06 Urine Turbidity Clear (Clear) 11/03/17 09:06 Urine pH 5.0 (5.0-7.0) 11/03/17 09:06 Ur Specific [place] 1.012 (1.003-1.030) 11/03/17 09:06 Urine Protein 100 mg/dl mg/dL (Negative) 11/03/17 09:06 Urine Glucose (UA) Neg mg/dL (Negative) 11/03/17 09:06 Urine Ketones Neg mg/dL (Negative) 11/03/17 09:06 Urine Blood Sm (Negative) 11/03/17 09:06 Urine Nitrite Neg (Negative) 11/03/17 09:06 Urine Bilirubin Neg (Negative) 11/03/17 09:06 Urine Urobilinogen < 2.0 mg/dL (<2.0) 11/03/17 09:06 Ur Leukocyte Esterase Sm (Negative) 11/03/17 09:06 Urine WBC (Auto) 7.0 /HPF (0.0-6.0) H 11/03/17 09:06 Urine RBC (Auto) 2.0 /HPF (0.0-6.0) 11/03/17 09:06 U Epithel Cells (Auto) 3.0 /HPF (0-13.0) 11/03/17 09:06 Urine Bacteria (Auto) 2+ /HPF (Negative) 11/03/17 09:06 Urine Creatinine 64.6 mg/dL (0.1-20.0) H 11/03/17 09:06 Protein/Creatinin Ratio 3.10 11/03/17 09:06 Urine Sodium 114 mmol/L 11/03/17 09:06 Urine Total Protein 200 mg/dL (5-11.8) H 11/03/17 09:06 Hepatitis A IgM Ab Non-reactive (NonReactive) 11/04/17 10:41 Hep Bs Antigen Non-reactive (Negative) 11/04/17 10:41 Hep B Core IgM Ab Non-reactive (NonReactive) 11/04/17 10:41 Hepatitis C Antibody Non-reactive (NonReactive) 11/04/17 10:41
[2017-11-05] MEDS: TYLENOL PO SCH ×4 (05:23→17:08)
[2017-11-05] MEDS: LOPRESSOR PO SCH ×4 (05:24→18:10)
--- NOTE | 2017-11-05 07:07 | Progress Note ---
Subjective Principal diagnosis: HF; AFib Interval history: Patient was seen today for follow-up on multiple renal related issues Events of this hospitalization noted Shortness of breath is improving no new chemistries today Vitals labs intake output medications were reviewed Social history: Reviewed Allergies: Reviewed Family history: Reviewed Physical examination HEENT: Oral mucosa moist no pallor or icterus Neck: Supple no JVD Chest: Clear to auscultation anteriorly CVS: Regular rate and rhythm S1 and S2 heard Abdomen: Soft nontender no suprapubic masses no organomegaly appreciable Extremity: Dry skin 2+ peripheral edema Musculoskeletal: No joint effusion noted in knees and ankle Neurological: Alert awake Dermatology: No petechial rashes Psychiatry: No evidence of any agitation and aggression noted Assessment and plan Renal failure severe: follow-up on the pending lab, order a 24-hour urine study for creatinine, creatinine clearance and total protein Patient likely may need to initiate renal replacement therapy depending on the results High-grade proteinuria 3.1 g noted, likely also causing peripheral swelling edema Metabolic acidosis: To monitor and follow Hypocalcemia corrected calcium appears to be normal Congestive heart failure-like picture; currently being treated by cardiology hyperkalemia: Mild to follow Pertinent lab findings were discussed with patient, patient does exhibit good understanding of renal issues We'll continue to follow and make recommendation from renal standpoint Objective - Vital Signs Vital signs: Vital Signs - 12hr 11/04/17 11/04/17 11/05/17 20:31 21:32 00:24 Temperature 97.9 F 97.6 F Pulse Rate 59 L 79 102 H Respiratory 18 20 Rate Blood Pressure 146/84 Blood Pressure 144/92 144/85 [Right] O2 Sat by Pulse 99 90 Oximetry 11/05/17 11/05/17 05:00 05:07 Temperature 98.2 F Pulse Rate 65 66 Respiratory 20 Rate Blood Pressure Blood Pressure 154/94 [Right] O2 Sat by Pulse 99 Oximetry - Lab 11/04/17 12:52 11/04/17 10:41 Most recent lab results Calcium 8.4 mg/dL (8.4-10.2) 11/04/17 10:41 Phosphorus 3.80 mg/dL (2.5-4.5) 11/04/17 10:41 Urine Creatinine 64.6 mg/dL (0.1-20.0) H 11/03/17 09:06 Urine Sodium 114 mmol/L 11/03/17 09:06 Urine Total Protein 200 mg/dL (5-11.8) H 11/03/17 09:06
[2017-11-05 07:08] LABS: Basophils % (Auto) 0.5 % (0.0-1.8); Eosinophils # (Auto) 0.1 K/mm3 (0.0-0.4); Eosinophils % (Auto) 1.4 % (0.0-4.3); Hematocrit 40.4 % (35.5-45.6); Hemoglobin 12.6 gm/dl (11.8-15.2); Lymphocytes # (Auto) 1.6 K/mm3 (1.2-5.4); Lymphocytes % (Auto) 20.9 % (13.4-35.0); Mean Corpuscular HGB Conc 31 % (32-34); Mean Corpuscular Hemoglobin 28 pg (28-32); Mean Corpuscular Volume 91 fl (84-94); Monocytes # (Auto) 0.9 K/mm3 (0.0-0.8); Monocytes % (Auto) 12.1 % (0.0-7.3); Platelet Count 216 K/mm3 (140-440); Red Blood Count 4.44 M/mm3 (3.65-5.03); Red Cell Distribution Width 17.1 % (13.2-15.2)
[2017-11-05 07:27] LABS: Calcium 8.1 mg/dL (8.4-10.2)
[2017-11-05] MEDS: APRESOLINE PO SCH ×3 (08:00→21:45)
[2017-11-05] MEDS: HEPARIN/ 0.45% NACL-25,000 UNIT/500 ML 25,000 UNIT/500 ML BAG IV SCH ×2 (09:48→17:05)
[2017-11-05] MEDS: FLOMAX PO SCH (09:53)
[2017-11-05] MEDS: ZYLOPRIM PO SCH (09:53)
[2017-11-05] MEDS: FLONASE NS SCH (09:53)
--- NOTE | 2017-11-05 10:45 | Progress Note ---
Assessment and Plan He may ultimately require dialysis. - Patient Problems (1) Acute diastolic HF (heart failure) Current Visit: Yes Status: Acute (2) Hypertensive emergency Current Visit: Yes Status: Acute (3) Atrial fibrillation Current Visit: Yes Status: Acute (4) CKD (chronic kidney disease) Current Visit: Yes Status: Chronic (5) Tobacco abuse Current Visit: Yes Status: Chronic (6) Asthma Current Visit: Yes Status: Chronic Subjective Date of service: 11/05/17 Principal diagnosis: Acute HFpEF, CKD Interval history: No new complaint. He remains in atrial fibrillation with a controlled ventricular rate. Objective Vital Signs Temp Pulse Resp BP BP Pulse Ox 11/05/17 09:41 100 11/05/17 09:10 98.3 F 60 20 130/78 97 11/05/17 07:51 98.3 F 63 20 130/78 98 11/05/17 05:07 98.2 F 66 20 154/94 99 11/05/17 05:00 65 11/05/17 03:56 64 151/94 100 11/05/17 00:24 97.6 F 102 H 20 144/85 90 11/04/17 23:27 64 91 11/04/17 23:26 68 144/85 90 11/04/17 21:32 79 146/84 11/04/17 20:31 97.9 F 59 L 18 144/92 99 11/04/17 18:22 97.9 F 64 20 156/91 93 11/04/17 16:42 64 156/91 11/04/17 16:38 64 156/91 11/04/17 14:53 100 11/04/17 13:09 97.8 F 73 20 148/95 11/04/17 10:49 78 159/80 - Physical Examination General: No Apparent Distress HEENT: Positive: EOMI, Normocephaly, Mucus Membranes Moist Neck: Positive: neck supple, trachea midline, JVD/HJR (elevated) Cardiac: Positive: Irregularly Regular, S1/S2 Lungs: Positive: clear to auscultation Neuro: Positive: Grossly Intact Abdomen: Positive: Soft, Active Bowel Sounds. Negative: Tender Skin: Positive: Clear. Negative: Rash Musculoskeletal: Normal Range of Motion Extremities: Present: +2 Edema (pitting bilateral leg edema) - Labs and Meds Coagulation 11/04/17 Range/Units 12:52 PT 13.5 (12.2-14.9) Sec. INR 0.98 (0.87-1.13) APTT 30.1 (24.2-36.6) Sec. CBC 11/04/17 11/05/17 Range/Units 12:52 06:35 WBC 7.6 (4.5-11.0) K/mm3 RBC 4.44 (3.65-5.03) M/mm3 Hgb 14.2 12.6 (11.8-15.2) gm/dl Hct 45.2 40.4 (35.5-45.6) % Plt Count 250 216 (140-440) K/mm3 Lymph # 1.6 (1.2-5.4) K/mm3 [place] # 0.9 H (0.0-0.8) K/mm3 Eos # 0.1 (0.0-0.4) K/mm3 Baso # 0.0 (0.0-0.1) K/mm3 Comprehensive Metabolic Panel 11/04/17 11/05/17 Range/Units 10:41 06:35 Sodium 142 143 (137-145) mmol/L Potassium 5.1 H 4.7 (3.6-5.0) mmol/L Chloride 106.5 108.7 H (98-107) mmol/L Carbon Dioxide 22 21 L (22-30) mmol/L BUN 69 H 70 H (9-20) mg/dL Creatinine 5.6 H 5.4 H (0.8-1.5) mg/dL Glucose 109 H 81 (75-100) mg/dL Calcium 8.4 8.1 L (8.4-10.2) mg/dL - Imaging and Cardiology EKG: image reviewed
[2017-11-05 15:00] LABS: Creatinine Clearance Urine TNR; Creatinine,Urine TNR mg/dL (0.1-20.0); Patient Height,Urine TNR inches; Total Volume,Urine TNR
--- NOTE | 2017-11-05 16:22 | Progress Note ---
Assessment and Plan Assessment and plan: Acute hypoxic respiratory failure - oxygen support - VQ scan probability for PE Acute on chronic diastolic CHF - beta drew, cardiology consult obtained, echo showed diastolic CHF - Lasix D/yahaira because of CKD Hypertensive urgency - Hydralazine and is on amlodipine, carvedilol, hydralazine when necessary Acute on chronic renal failure - Nephrology consult - Nephrology said patient may need dialysis Atrial fibrillation - Patient is on anticoagulation Malnutrition - Nutrition consult Medication noncompliance - Patient is counseled about medication adherence Tobacco abuse - Patient is counseled about cessation of smoking DVT prophylaxis - on therapeutic heparin Disposition - continue inpatient care History Interval history: Patient was seen and evaluated this morning, didn't have any problems overnight. Hospitalist Physical - Physical exam Narrative exam: Not in cardiopulmonary distress. The patient appeared well nourished and normally developed. Vital signs as documented. Head exam is unremarkable. No scleral icterus . Neck is without jugular venous distension, thyromegaly, or carotid bruits. Lungs are clear to auscultation. Cardiac exam reveals regular rate and Rhythm. Abdominal exam reveals normal bowel sounds, no masses, no organomegaly and no aortic enlargement. Extremities +2 pedal and pretibial edema. 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 No focal weakness. - Constitutional Vitals: Temp Pulse Resp BP Pulse Ox 98.7 F 65 20 136/74 98 11/05/17 11:06 11/05/17 12:18 11/05/17 11:06 11/05/17 12:18 11/05/17 11:06 General appearance: Present: no acute distress Results - Labs CBC & Chem 7: 11/05/17 06:35 11/05/17 06:35 Labs: Laboratory Last Values WBC 7.6 K/mm3 (4.5-11.0) 11/05/17 06:35 RBC 4.44 M/mm3 (3.65-5.03) 11/05/17 06:35 Hgb 12.6 gm/dl (11.8-15.2) 11/05/17 06:35 Hct 40.4 % (35.5-45.6) 11/05/17 06:35 MCV 91 fl (84-94) 11/05/17 06:35 MCH 28 pg (28-32) 11/05/17 06:35 MCHC 31 % (32-34) L 11/05/17 06:35 RDW 17.1 % (13.2-15.2) H 11/05/17 06:35 Plt Count 216 K/mm3 (140-440) 11/05/17 06:35 Lymph % (Auto) 20.9 % (13.4-35.0) 11/05/17 06:35 [place] % (Auto) 12.1 % (0.0-7.3) H 11/05/17 06:35 Eos % (Auto) 1.4 % (0.0-4.3) 11/05/17 06:35 Baso % (Auto) 0.5 % (0.0-1.8) 11/05/17 06:35 Lymph # 1.6 K/mm3 (1.2-5.4) 11/05/17 06:35 [place] # 0.9 K/mm3 (0.0-0.8) H 11/05/17 06:35 Eos # 0.1 K/mm3 (0.0-0.4) 11/05/17 06:35 Baso # 0.0 K/mm3 (0.0-0.1) 11/05/17 06:35 Seg Neutrophils % 65.1 % (40.0-70.0) 11/05/17 06:35 Seg Neutrophils # 4.9 K/mm3 (1.8-7.7) 11/05/17 06:35 PT 13.5 Sec. (12.2-14.9) 11/04/17 12:52 INR 0.98 (0.87-1.13) 11/04/17 12:52 APTT 30.1 Sec. (24.2-36.6) 11/04/17 12:52 D-Dimer 439.92 ng/mlDDU (0-234) H 11/03/17 01:43 Heparin Anti-Xa Level 0.33 U.I./ml (0.3-0.7) 11/05/17 15:46 Sodium 143 mmol/L (137-145) 11/05/17 06:35 Potassium 4.7 mmol/L (3.6-5.0) 11/05/17 06:35 Chloride 108.7 mmol/L (98-107) H 11/05/17 06:35 Carbon Dioxide 21 mmol/L (22-30) L 11/05/17 06:35 Anion Gap 18 mmol/L 11/05/17 06:35 BUN 70 mg/dL (9-20) H 11/05/17 06:35 Creatinine 5.4 mg/dL (0.8-1.5) H 11/05/17 06:35 Estimated GFR 13 ml/min 11/05/17 06:35 BUN/Creatinine Ratio 13 % 11/05/17 06:35 Glucose 81 mg/dL (75-100) 11/05/17 06:35 POC Glucose 83 (70-105) 11/04/17 16:31 Calcium 8.1 mg/dL (8.4-10.2) L 11/05/17 06:35 Phosphorus 3.80 mg/dL (2.5-4.5) 11/04/17 10:41 Total Bilirubin 0.20 mg/dL (0.1-1.2) 11/03/17 01:43 AST 13 units/L (5-40) 11/03/17 01:43 ALT 11 units/L (7-56) 11/03/17 01:43 Alkaline Phosphatase 138 units/L (35-129) H 11/03/17 01:43 Troponin T 0.020 ng/mL (0.00-0.029) 11/03/17 01:43 NT-Pro-B Natriuret Pep 2809 pg/mL (0-900) H 11/03/17 01:43 Total Protein 7.6 g/dL (6.3-8.2) 11/03/17 01:43 Albumin 3.3 g/dL (3.9-5) L 11/03/17 01:43 Albumin/Globulin Ratio 0.8 % 11/03/17 01:43 PTH Intact 253.2 pg/mL (15-65) H 11/04/17 10:41 Urine Color Yellow (Yellow) 11/03/17 09:06 Urine Turbidity Clear (Clear) 11/03/17 09:06 Urine pH 5.0 (5.0-7.0) 11/03/17 09:06 Ur Specific [place] 1.012 (1.003-1.030) 11/03/17 09:06 Urine Protein 100 mg/dl mg/dL (Negative) 11/03/17 09:06 Urine Glucose (UA) Neg mg/dL (Negative) 11/03/17 09:06 Urine Ketones Neg mg/dL (Negative) 11/03/17 09:06 Urine Blood Sm (Negative) 11/03/17 09:06 Urine Nitrite Neg (Negative) 11/03/17 09:06 Urine Bilirubin Neg (Negative) 11/03/17 09:06 Urine Urobilinogen < 2.0 mg/dL (<2.0) 11/03/17 09:06 Ur Leukocyte Esterase Sm (Negative) 11/03/17 09:06 Urine WBC (Auto) 7.0 /HPF (0.0-6.0) H 11/03/17 09:06 Urine RBC (Auto) 2.0 /HPF (0.0-6.0) 11/03/17 09:06 U Epithel Cells (Auto) 3.0 /HPF (0-13.0) 11/03/17 09:06 Urine Bacteria (Auto) 2+ /HPF (Negative) 11/03/17 09:06 Urine Total Volume TNR 11/05/17 13:44 Urine Creatinine TNR 11/05/17 13:44 Height (in) TNR 11/05/17 13:44 Weight (lb) TNR 11/05/17 13:44 Creatinine Clearance TNR 11/05/17 13:44 Protein/Creatinin Ratio 3.10 11/03/17 09:06 Urine Sodium 114 mmol/L 11/03/17 09:06 Urine Total Protein 200 mg/dL (5-11.8) H 11/03/17 09:06 Hepatitis A IgM Ab Non-reactive (NonReactive) 11/04/17 10:41 Hep Bs Antigen Non-reactive (Negative) 11/04/17 10:41 Hep B Core IgM Ab Non-reactive (NonReactive) 11/04/17 10:41 Hepatitis C Antibody Non-reactive (NonReactive) 11/04/17 10:41
[2017-11-06] MEDS: TYLENOL PO SCH ×5 (00:15→23:54)
[2017-11-06] MEDS: LOPRESSOR PO SCH ×5 (00:16→23:54)
[2017-11-06] MEDS: HEPARIN/ 0.45% NACL-25,000 UNIT/500 ML 25,000 UNIT/500 ML BAG IV SCH ×2 (04:26→23:55)
[2017-11-06 05:37] LABS: Hematocrit 40.1 % (35.5-45.6)
[2017-11-06 05:54] LABS: Calcium 8.2 mg/dL (8.4-10.2)
[2017-11-06] MEDS: ZYLOPRIM PO SCH (09:29)
[2017-11-06] MEDS: FLOMAX PO SCH (09:29)
[2017-11-06] MEDS: APRESOLINE PO SCH ×3 (09:29→21:39)
--- NOTE | 2017-11-06 11:51 | Progress Note ---
Assessment and Plan Nephrology evaluation is still ongoing. He ultimately require dialysis. Continue current cardiac management. - Patient Problems (1) Acute diastolic HF (heart failure) Current Visit: Yes Status: Acute (2) Hypertensive emergency Current Visit: Yes Status: Acute (3) Atrial fibrillation Current Visit: Yes Status: Acute (4) CKD (chronic kidney disease) Current Visit: Yes Status: Chronic (5) Hypertensive heart disease Current Visit: Yes Status: Chronic (6) Pulmonary hypertension Current Visit: Yes Status: Chronic (7) Proteinuria Current Visit: Yes Status: Chronic Qualifiers: Proteinuria type: other Qualified Code(s): R80.8 - Other proteinuria (8) Asthma Current Visit: Yes Status: Chronic (9) Tobacco abuse Current Visit: Yes Status: Chronic Subjective Date of service: 11/06/17 Principal diagnosis: Acute HFpEF, CKD Interval history: He feels better. Objective Vital Signs Temp Pulse Resp BP BP Pulse Ox 11/06/17 11:05 64 11/06/17 07:41 98.7 F 65 20 136/62 99 11/06/17 05:43 68 130/73 11/06/17 05:13 98.4 F 68 18 130/73 99 11/06/17 00:16 71 130/77 11/05/17 23:36 98.1 F 71 18 130/77 100 11/05/17 22:00 20 11/05/17 21:45 70 134/75 11/05/17 19:57 70 11/05/17 19:44 98.5 F 70 18 134/75 99 11/05/17 17:08 84 132/78 11/05/17 16:45 98.3 F 65 20 136/74 99 11/05/17 15:31 98.3 F 65 20 131/71 99 11/05/17 12:18 65 136/74 11/05/17 12:16 65 136/74 - Physical Examination General: No Apparent Distress HEENT: Positive: EOMI, Normocephaly, Mucus Membranes Moist Neck: Positive: neck supple, trachea midline, JVD/HJR (elevated) Cardiac: Positive: Irregularly Regular, S1/S2 Lungs: Positive: Wheezes Neuro: Positive: Grossly Intact Abdomen: Positive: Soft, Active Bowel Sounds. Negative: Tender Skin: Positive: Clear. Negative: Rash Musculoskeletal: Normal Range of Motion Extremities: Present: +2 Edema (pitting bilateral leg edema) - Labs and Meds CBC 11/06/17 Range/Units 05:21 Hgb 13.0 (11.8-15.2) gm/dl Hct 40.1 (35.5-45.6) % Plt Count 204 (140-440) K/mm3 Comprehensive Metabolic Panel 11/06/17 Range/Units 05:21 Sodium 140 (137-145) mmol/L Potassium 4.7 (3.6-5.0) mmol/L Chloride 106.5 (98-107) mmol/L Carbon Dioxide 21 L (22-30) mmol/L BUN 66 H (9-20) mg/dL Creatinine 5.3 H (0.8-1.5) mg/dL Glucose 92 (75-100) mg/dL Calcium 8.2 L (8.4-10.2) mg/dL - Imaging and Cardiology EKG: image reviewed - EKG Supraventricular dysrhythmia: atrial fibrillation
--- NOTE | 2017-11-06 12:03 | Progress Note ---
Subjective Date of service: 11/06/17 Principal diagnosis: Acute HFpEF, CKD Objective - Vital Signs Vital signs: Vital Signs - 12hr 11/06/17 11/06/17 11/06/17 00:16 05:13 05:43 Temperature 98.4 F Pulse Rate 71 68 68 Respiratory 18 Rate Blood Pressure 130/77 130/73 130/73 O2 Sat by Pulse 99 Oximetry 11/06/17 11/06/17 07:41 11:05 Temperature 98.7 F Pulse Rate 65 64 Respiratory 20 Rate Blood Pressure 136/62 O2 Sat by Pulse 99 Oximetry - Lab 11/06/17 05:21 11/06/17 05:21 Most recent lab results Calcium 8.2 mg/dL (8.4-10.2) L 11/06/17 05:21 Phosphorus 3.80 mg/dL (2.5-4.5) 11/04/17 10:41 Urine Creatinine TNR 11/05/17 13:44 Urine Sodium 114 mmol/L 11/03/17 09:06 Urine Total Protein 200 mg/dL (5-11.8) H 11/03/17 09:06
[2017-11-06] MEDS: FLONASE NS SCH (13:20)
--- NOTE | 2017-11-06 13:32 | Progress Note ---
Assessment and Plan Assessment and plan: Acute hypoxic respiratory failure - oxygen support - VQ scan probability for PE Acute on chronic diastolic CHF - beta drew, cardiology consult obtained, echo showed diastolic CHF - Lasix D/yahaira because of CKD Hypertensive urgency - Hydralazine and is on amlodipine, carvedilol, hydralazine when necessary Acute on chronic renal failure - Nephrology consult - Nephrology said patient may need dialysis, 24-hour creatinine level Atrial fibrillation - Patient is on anticoagulation Malnutrition - Nutrition consult Medication noncompliance - Patient is counseled about medication adherence Tobacco abuse - Patient is counseled about cessation of smoking DVT prophylaxis - on therapeutic heparin Disposition - continue inpatient care History Interval history: Patient was seen and evaluated this morning, didn't have any problems overnight. Hospitalist Physical - Physical exam Narrative exam: Not in cardiopulmonary distress. The patient appeared well nourished and normally developed. Vital signs as documented. Head exam is unremarkable. No scleral icterus . Neck is without jugular venous distension, thyromegaly, or carotid bruits. Lungs are clear to auscultation. Cardiac exam reveals regular rate and Rhythm. Abdominal exam reveals normal bowel sounds, no masses, no organomegaly and no aortic enlargement. Extremities +1 pedal and pretibial edema. 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 No focal weakness. - Constitutional Vitals: Temp Pulse Resp BP Pulse Ox 97.5 F L 71 20 145/84 100 11/06/17 11:13 11/06/17 11:13 11/06/17 11:13 11/06/17 11:13 11/06/17 11:13 General appearance: Present: no acute distress Results - Labs CBC & Chem 7: 11/06/17 05:21 11/06/17 05:21 Labs: Laboratory Last Values WBC 7.6 K/mm3 (4.5-11.0) 11/05/17 06:35 RBC 4.44 M/mm3 (3.65-5.03) 11/05/17 06:35 Hgb 13.0 gm/dl (11.8-15.2) 11/06/17 05:21 Hct 40.1 % (35.5-45.6) 11/06/17 05:21 MCV 91 fl (84-94) 11/05/17 06:35 MCH 28 pg (28-32) 11/05/17 06:35 MCHC 31 % (32-34) L 11/05/17 06:35 RDW 17.1 % (13.2-15.2) H 11/05/17 06:35 Plt Count 204 K/mm3 (140-440) 11/06/17 05:21 Lymph % (Auto) 20.9 % (13.4-35.0) 11/05/17 06:35 [place] % (Auto) 12.1 % (0.0-7.3) H 11/05/17 06:35 Eos % (Auto) 1.4 % (0.0-4.3) 11/05/17 06:35 Baso % (Auto) 0.5 % (0.0-1.8) 11/05/17 06:35 Lymph # 1.6 K/mm3 (1.2-5.4) 11/05/17 06:35 [place] # 0.9 K/mm3 (0.0-0.8) H 11/05/17 06:35 Eos # 0.1 K/mm3 (0.0-0.4) 11/05/17 06:35 Baso # 0.0 K/mm3 (0.0-0.1) 11/05/17 06:35 Seg Neutrophils % 65.1 % (40.0-70.0) 11/05/17 06:35 Seg Neutrophils # 4.9 K/mm3 (1.8-7.7) 11/05/17 06:35 PT 13.5 Sec. (12.2-14.9) 11/04/17 12:52 INR 0.98 (0.87-1.13) 11/04/17 12:52 APTT 30.1 Sec. (24.2-36.6) 11/04/17 12:52 D-Dimer 439.92 ng/mlDDU (0-234) H 11/03/17 01:43 Heparin Anti-Xa Level 0.21 U.I./ml (0.3-0.7) L 11/06/17 05:12 Sodium 140 mmol/L (137-145) 11/06/17 05:21 Potassium 4.7 mmol/L (3.6-5.0) 11/06/17 05:21 Chloride 106.5 mmol/L (98-107) 11/06/17 05:21 Carbon Dioxide 21 mmol/L (22-30) L 11/06/17 05:21 Anion Gap 17 mmol/L 11/06/17 05:21 BUN 66 mg/dL (9-20) H 11/06/17 05:21 Creatinine 5.3 mg/dL (0.8-1.5) H 11/06/17 05:21 Estimated GFR 13 ml/min 11/06/17 05:21 BUN/Creatinine Ratio 12 % 11/06/17 05:21 Glucose 92 mg/dL (75-100) 11/06/17 05:21 POC Glucose 83 (70-105) 11/04/17 16:31 Calcium 8.2 mg/dL (8.4-10.2) L 11/06/17 05:21 Phosphorus 3.80 mg/dL (2.5-4.5) 11/04/17 10:41 Total Bilirubin 0.20 mg/dL (0.1-1.2) 11/03/17 01:43 AST 13 units/L (5-40) 11/03/17 01:43 ALT 11 units/L (7-56) 11/03/17 01:43 Alkaline Phosphatase 138 units/L (35-129) H 11/03/17 01:43 Troponin T 0.020 ng/mL (0.00-0.029) 11/03/17 01:43 NT-Pro-B Natriuret Pep 2809 pg/mL (0-900) H 11/03/17 01:43 Total Protein 7.6 g/dL (6.3-8.2) 11/03/17 01:43 Albumin 3.3 g/dL (3.9-5) L 11/03/17 01:43 Albumin/Globulin Ratio 0.8 % 11/03/17 01:43 PTH Intact 253.2 pg/mL (15-65) H 11/04/17 10:41 Urine Color Yellow (Yellow) 11/03/17 09:06 Urine Turbidity Clear (Clear) 11/03/17 09:06 Urine pH 5.0 (5.0-7.0) 11/03/17 09:06 Ur Specific [place] 1.012 (1.003-1.030) 11/03/17 09:06 Urine Protein 100 mg/dl mg/dL (Negative) 11/03/17 09:06 Urine Glucose (UA) Neg mg/dL (Negative) 11/03/17 09:06 Urine Ketones Neg mg/dL (Negative) 11/03/17 09:06 Urine Blood Sm (Negative) 11/03/17 09:06 Urine Nitrite Neg (Negative) 11/03/17 09:06 Urine Bilirubin Neg (Negative) 11/03/17 09:06 Urine Urobilinogen < 2.0 mg/dL (<2.0) 11/03/17 09:06 Ur Leukocyte Esterase Sm (Negative) 11/03/17 09:06 Urine WBC (Auto) 7.0 /HPF (0.0-6.0) H 11/03/17 09:06 Urine RBC (Auto) 2.0 /HPF (0.0-6.0) 11/03/17 09:06 U Epithel Cells (Auto) 3.0 /HPF (0-13.0) 11/03/17 09:06 Urine Bacteria (Auto) 2+ /HPF (Negative) 11/03/17 09:06 Urine Total Volume 1250 11/06/17 12:00 Urine Creatinine TNR 11/05/17 13:44 Height (in) TNR 11/05/17 13:44 Weight (lb) TNR 11/05/17 13:44 Creatinine Clearance TNR 11/05/17 13:44 Protein/Creatinin Ratio 3.10 11/03/17 09:06 Urine Sodium 114 mmol/L 11/03/17 09:06 Urine Total Protein 200 mg/dL (5-11.8) H 11/03/17 09:06 Hepatitis A IgM Ab Non-reactive (NonReactive) 11/04/17 10:41 Hep Bs Antigen Non-reactive (Negative) 11/04/17 10:41 Hep B Core IgM Ab Non-reactive (NonReactive) 11/04/17 10:41 Hepatitis C Antibody Non-reactive (NonReactive) 11/04/17 10:41
[2017-11-06 13:46] LABS: Creatinine 24 Hour,Urine 0.8 (0.8-2.8); Creatinine,Urine 60.9 mg/dL (0.1-20.0)
[2017-11-06 13:51] LABS: Creatinine 24 Hour,Urine 0.8 (0.8-2.8); Creatinine,Urine 61.8 mg/dL (0.1-20.0)
--- NOTE | 2017-11-06 13:51 | Progress Note ---
Assessment and Plan Impression: * Stage IV/V CKD * Hypertension * Proteinuria * Diastolic heart failure * Metabolic acidosis * Peripheral edema Plan: * No acute need for HD today * 24h urine collection to be completed at noon today * Continue current antiHTN medications * Avoid potential nephrotoxins * Dose medications for renal function Subjective Date of service: 11/06/17 Principal diagnosis: Acute HFpEF, CKD Objective - Vital Signs Vital signs: Vital Signs - 12hr 11/06/17 11/06/17 11/06/17 05:13 05:43 07:41 Temperature 98.4 F 98.7 F Pulse Rate 68 68 65 Respiratory 18 20 Rate Blood Pressure 130/73 130/73 136/62 O2 Sat by Pulse 99 99 Oximetry 11/06/17 11/06/17 11:05 11:13 Temperature 97.5 F L Pulse Rate 64 71 Respiratory 20 Rate Blood Pressure 145/84 O2 Sat by Pulse 100 Oximetry - General Appearance General appearance: well-developed, well-nourished EENT: ATNC Respiratory: Present: Clear to Ascultation Cardiology: regular, S1S2 Gastrointestinal: normal, no tenderness, no distended Integumentary: no rash Neurologic: no focal deficit Musculoskeletal: other (1+ edema) Psychiatric: cooperative - Lab 11/06/17 05:21 11/06/17 05:21 Most recent lab results Calcium 8.2 mg/dL (8.4-10.2) L 11/06/17 05:21 Phosphorus 3.80 mg/dL (2.5-4.5) 11/04/17 10:41 Urine Creatinine 60.9 mg/dL (0.1-20.0) H 11/06/17 12:00 Urine Sodium 114 mmol/L 11/03/17 09:06 Urine Total Protein 200 mg/dL (5-11.8) H 11/03/17 09:06
[2017-11-06 22:40] LABS: ANA Screen, IFA Negative (Negative)
[2017-11-06] MEDS ORDERED: HEPARIN 10,000 UNITS/10 ML IV ONE (23:50)
[2017-11-07 05:06] LABS: Albumin 2.9 g/dL (3.8-4.8); Gamma Globulin 1.7 g/dL (0.8-1.7)
[2017-11-07 05:37] LABS: Calcium 8.2 mg/dL (8.4-10.2)
[2017-11-07] MEDS: LOPRESSOR PO SCH ×2 (06:41→23:16)
[2017-11-07] MEDS: TYLENOL PO SCH ×3 (06:42→17:59)
[2017-11-07] MEDS: APRESOLINE PO SCH ×3 (08:36→21:19)
[2017-11-07 10:00] LABS: Creatinine,Urine 61.8 mg/dL (0.1-20.0)
[2017-11-07] MEDS: FLONASE NS SCH (10:18)
[2017-11-07] MEDS: FLOMAX PO SCH (10:19)
[2017-11-07] MEDS: ZYLOPRIM PO SCH (10:20)
--- NOTE | 2017-11-07 11:52 | Progress Note ---
Assessment and Plan acute diastolic heart failure respiratory failure acute on chronic renal failure htn urgency afib hypercougualble state chol nstemi type 2 rec: change to Lopressor 100mg bid, consider elquis 5mg bid and cont hydralzine and add imdur for bp control , diuretics as per renal, no lizzie or arb Subjective Date of service: 11/07/17 Principal diagnosis: Acute HFpEF, CKD Interval history: Patient is feeling better breath Objective Vital Signs Temp Pulse Resp BP BP Pulse Ox 11/07/17 09:18 98 11/07/17 07:00 97.8 F 68 20 146/74 97 11/07/17 06:41 76 136/81 11/07/17 05:08 98.4 F 71 20 136/81 98 11/06/17 23:54 76 154/87 11/06/17 23:43 98.3 F 63 18 145/91 100 11/06/17 23:35 98.5 F 76 20 154/87 99 11/06/17 22:20 20 11/06/17 22:04 97 11/06/17 21:39 65 144/86 11/06/17 20:40 60 11/06/17 19:21 98.6 F 64 20 144/86 97 11/06/17 15:25 97.4 F L 64 20 146/72 96 - Physical Examination General: No Apparent Distress HEENT: Positive: EOMI, Normocephaly, Mucus Membranes Moist Neck: Positive: neck supple, trachea midline, JVD/HJR (elevated) Cardiac: Positive: Irregularly Regular Lungs: Positive: clear to auscultation Neuro: Positive: Grossly Intact Abdomen: Positive: Soft, Active Bowel Sounds. Negative: Tender Skin: Positive: Clear. Negative: Rash Musculoskeletal: Normal Range of Motion Extremities: Absent: edema - Labs and Meds Comprehensive Metabolic Panel 11/04/17 11/07/17 Range/Units 10:41 04:26 Sodium 140 (137-145) mmol/L Potassium 4.7 (3.6-5.0) mmol/L Chloride 106.9 (98-107) mmol/L Carbon Dioxide 19 L (22-30) mmol/L BUN 63 H (9-20) mg/dL Creatinine 5.4 H (0.8-1.5) mg/dL Glucose 117 H (75-100) mg/dL Calcium 8.2 L (8.4-10.2) mg/dL Albumin 2.9 L (3.8-4.8) g/dL - Imaging and Cardiology EKG: image reviewed - Telemetry EKG Rhythm: Atrial Fibrillation (afib in 70's)
[2017-11-07] MEDS: IMDUR PO SCH (12:39)
--- NOTE | 2017-11-07 12:43 | Progress Note ---
Assessment and Plan Impression: * Stage IV/V CKD * Hypertension * Atrial fibrillation * Proteinuria * Diastolic heart failure * Metabolic acidosis * Peripheral edema Plan: * 24h urine CrCl 7ml/min; lengthy discussion with patient today re need to start dialysis this admission, appears reluctant; all questions answered * No emergent need today * Will consult vascular surgery for permcath insertion on Thursday * Hemodialysis to follow * Hold initiation of Eliquis for now in anticipation of permcath - discussed with Dr. Mayer * Continue current antiHTN medications * Avoid potential nephrotoxins * Dose medications for renal function Subjective Date of service: 11/07/17 Principal diagnosis: Acute HFpEF, CKD Interval history: Patient has no complaints Objective - Vital Signs Vital signs: Vital Signs - 12hr 11/07/17 11/07/17 11/07/17 05:08 06:41 07:00 Temperature 98.4 F 97.8 F Pulse Rate 71 76 68 Respiratory 20 20 Rate Blood Pressure 136/81 136/81 Blood Pressure 146/74 [Right] O2 Sat by Pulse 98 97 Oximetry 11/07/17 11/07/17 09:18 11:44 Temperature 98.3 F Pulse Rate 71 Respiratory 20 Rate Blood Pressure 145/91 Blood Pressure [Right] O2 Sat by Pulse 98 99 Oximetry - General Appearance General appearance: well-developed, well-nourished EENT: ATNC Respiratory: Present: Clear to Ascultation Cardiology: regular, S1S2 Gastrointestinal: normal, no tenderness, no distended Integumentary: no rash Neurologic: no focal deficit Musculoskeletal: other (1+ edema) - Lab 11/06/17 05:21 11/07/17 04:26 Most recent lab results Calcium 8.2 mg/dL (8.4-10.2) L 11/07/17 04:26 Phosphorus 3.80 mg/dL (2.5-4.5) 11/04/17 10:41 Urine Creatinine 61.8 mg/dL (0.1-20.0) H 11/06/17 13:20 Ur Total Protein 24 Hr 1962.50 (2-200) H 11/06/17 12:00 Urine Sodium 114 mmol/L 11/03/17 09:06 Urine Total Protein 157 mg/dL (5-11.8) H 11/06/17 12:00
--- NOTE | 2017-11-07 16:14 | Progress Note ---
Assessment and Plan Assessment and plan: Acute hypoxic respiratory failure - oxygen support - VQ scan low probability for PE Acute on chronic diastolic CHF - beta drew, cardiology consult obtained, echo showed diastolic CHF - Lasix D/yahaira because of CKD Hypertensive urgency - Hydralazine and is on amlodipine, carvedilol, hydralazine when necessary Acute on chronic renal failure - Nephrology is following - will have permcath on Thursday and will have dialysis Atrial fibrillation - Patient is on anticoagulation Malnutrition - Nutrition consult Medication noncompliance - Patient is counseled about medication adherence Tobacco abuse - Patient is counseled about cessation of smoking DVT prophylaxis - on therapeutic heparin Disposition - continue inpatient care History Interval history: Patient was seen and evaluated this morning, didn't have any problems overnight. Hospitalist Physical - Physical exam Narrative exam: Not in cardiopulmonary distress. The patient is obese. Vital signs as documented. Head exam is unremarkable. No scleral icterus . Neck is without jugular venous distension, thyromegaly, or carotid bruits. Lungs are clear to auscultation. Cardiac exam reveals regular rate and Rhythm. Abdominal exam reveals normal bowel sounds, no masses, no organomegaly and no aortic enlargement. Extremities +1 pedal and pretibial edema. DAG COATER: Alert and oriented 3. No focal weakness. - Constitutional Vitals: Temp Pulse Resp BP Pulse Ox 98.3 F 71 20 145/91 99 11/07/17 11:44 11/07/17 11:44 11/07/17 11:44 11/07/17 11:44 11/07/17 11:44 General appearance: Present: no acute distress Results - Labs CBC & Chem 7: 11/06/17 05:21 11/07/17 04:26 Labs: Laboratory Last Values WBC 7.6 K/mm3 (4.5-11.0) 11/05/17 06:35 RBC 4.44 M/mm3 (3.65-5.03) 11/05/17 06:35 Hgb 13.0 gm/dl (11.8-15.2) 11/06/17 05:21 Hct 40.1 % (35.5-45.6) 11/06/17 05:21 MCV 91 fl (84-94) 11/05/17 06:35 MCH 28 pg (28-32) 11/05/17 06:35 MCHC 31 % (32-34) L 11/05/17 06:35 RDW 17.1 % (13.2-15.2) H 11/05/17 06:35 Plt Count 204 K/mm3 (140-440) 11/06/17 05:21 Lymph % (Auto) 20.9 % (13.4-35.0) 11/05/17 06:35 [place] % (Auto) 12.1 % (0.0-7.3) H 11/05/17 06:35 Eos % (Auto) 1.4 % (0.0-4.3) 11/05/17 06:35 Baso % (Auto) 0.5 % (0.0-1.8) 11/05/17 06:35 Lymph # 1.6 K/mm3 (1.2-5.4) 11/05/17 06:35 [place] # 0.9 K/mm3 (0.0-0.8) H 11/05/17 06:35 Eos # 0.1 K/mm3 (0.0-0.4) 11/05/17 06:35 Baso # 0.0 K/mm3 (0.0-0.1) 11/05/17 06:35 Seg Neutrophils % 65.1 % (40.0-70.0) 11/05/17 06:35 Seg Neutrophils # 4.9 K/mm3 (1.8-7.7) 11/05/17 06:35 PT 13.5 Sec. (12.2-14.9) 11/04/17 12:52 INR 0.98 (0.87-1.13) 11/04/17 12:52 APTT 30.1 Sec. (24.2-36.6) 11/04/17 12:52 D-Dimer 439.92 ng/mlDDU (0-234) H 11/03/17 01:43 Heparin Anti-Xa Level 0.23 U.I./ml (0.3-0.7) L 11/07/17 04:26 Sodium 140 mmol/L (137-145) 11/07/17 04:26 Potassium 4.7 mmol/L (3.6-5.0) 11/07/17 04:26 Chloride 106.9 mmol/L (98-107) 11/07/17 04:26 Carbon Dioxide 19 mmol/L (22-30) L 11/07/17 04:26 Anion Gap 19 mmol/L 11/07/17 04:26 BUN 63 mg/dL (9-20) H 11/07/17 04:26 Creatinine 5.4 mg/dL (0.8-1.5) H 11/07/17 04:26 Estimated GFR 13 ml/min 11/07/17 04:26 BUN/Creatinine Ratio 12 % 11/07/17 04:26 Glucose 117 mg/dL (75-100) H 11/07/17 04:26 POC Glucose 83 (70-105) 11/04/17 16:31 Calcium 8.2 mg/dL (8.4-10.2) L 11/07/17 04:26 Phosphorus 3.80 mg/dL (2.5-4.5) 11/04/17 10:41 Total Bilirubin 0.20 mg/dL (0.1-1.2) 11/03/17 01:43 AST 13 units/L (5-40) 11/03/17 01:43 ALT 11 units/L (7-56) 11/03/17 01:43 Alkaline Phosphatase 138 units/L (35-129) H 11/03/17 01:43 Troponin T 0.020 ng/mL (0.00-0.029) 11/03/17 01:43 NT-Pro-B Natriuret Pep 2809 pg/mL (0-900) H 11/03/17 01:43 Serum Total Protein 6.4 g/dL (6.1-8.1) 11/04/17 10:41 Total Protein 7.6 g/dL (6.3-8.2) 11/03/17 01:43 Albumin 2.9 g/dL (3.8-4.8) L 11/04/17 10:41 Albumin/Globulin Ratio 0.8 % 11/03/17 01:43 Eduno-6-Hlesqjsce 0.3 g/dL (0.2-0.3) 11/04/17 10:41 Tfkhw-3-Lxixzkijb 0.8 g/dL (0.5-0.9) 11/04/17 10:41 Beta Globulins 0.4 g/dL (0.2-0.5) 11/04/17 10:41 Gamma Globulins 1.7 g/dL (0.8-1.7) 11/04/17 10:41 Abnorm Protein Band 1 see below 11/04/17 10:41 PEP Interpretation see below H 11/04/17 10:41 PTH Intact 253.2 pg/mL (15-65) H 11/04/17 10:41 Urine Color Yellow (Yellow) 11/03/17 09:06 Urine Turbidity Clear (Clear) 11/03/17 09:06 Urine pH 5.0 (5.0-7.0) 11/03/17 09:06 Ur Specific [place] 1.012 (1.003-1.030) 11/03/17 09:06 Urine Protein 100 mg/dl mg/dL (Negative) 11/03/17 09:06 Urine Glucose (UA) Neg mg/dL (Negative) 11/03/17 09:06 Urine Ketones Neg mg/dL (Negative) 11/03/17 09:06 Urine Blood Sm (Negative) 11/03/17 09:06 Urine Nitrite Neg (Negative) 11/03/17 09:06 Urine Bilirubin Neg (Negative) 11/03/17 09:06 Urine Urobilinogen < 2.0 mg/dL (<2.0) 11/03/17 09:06 Ur Leukocyte Esterase Sm (Negative) 11/03/17 09:06 Urine WBC (Auto) 7.0 /HPF (0.0-6.0) H 11/03/17 09:06 Urine RBC (Auto) 2.0 /HPF (0.0-6.0) 11/03/17 09:06 U Epithel Cells (Auto) 3.0 /HPF (0-13.0) 11/03/17 09:06 Urine Bacteria (Auto) 2+ /HPF (Negative) 11/03/17 09:06 Urine Total Volume 1250 11/06/17 13:20 Urine Creatinine 61.8 mg/dL (0.1-20.0) H 11/06/17 13:20 Ur Creatinine 24 Hour 0.8 (0.8-2.8) 11/06/17 12:00 Height (in) 69.0 inches 11/06/17 13:20 Weight (lb) 243.0 lbs 11/06/17 13:20 Creatinine Clearance 7 11/06/17 13:20 Ur Total Protein 24 Hr 1962.50 (2-200) H 11/06/17 12:00 Protein/Creatinin Ratio 3.10 11/03/17 09:06 Urine Sodium 114 mmol/L 11/03/17 09:06 Urine Total Protein 157 mg/dL (5-11.8) H 11/06/17 12:00 SHANITA Screen Negative (Negative) 11/04/17 10:41 Hepatitis A IgM Ab Non-reactive (NonReactive) 11/04/17 10:41 Hep Bs Antigen Non-reactive (Negative) 11/04/17 10:41 Hep B Core IgM Ab Non-reactive (NonReactive) 11/04/17 10:41 Hepatitis C Antibody Non-reactive (NonReactive) 11/04/17 10:41
[2017-11-07] MEDS: HEPARIN/ 0.45% NACL-25,000 UNIT/500 ML 25,000 UNIT/500 ML BAG IV SCH (18:01)
[2017-11-08] MEDS: TYLENOL PO SCH ×3 (00:11→16:58)
[2017-11-08 07:50] LABS: Hematocrit 38.7 % (35.5-45.6); Hemoglobin 12.5 gm/dl (11.8-15.2)
[2017-11-08 08:33] LABS: Calcium 8.5 mg/dL (8.4-10.2)
--- NOTE | 2017-11-08 09:04 | Progress Note ---
Assessment and Plan Impression: * Stage IV/V CKD --24h urine CrCl 7ml/min * Hypertension * Atrial fibrillation * Proteinuria * Diastolic heart failure * Metabolic acidosis * Peripheral edema Plan: * Will consult vascular surgery for permcath insertion on Thursday * Hemodialysis to follow * Hold initiation of Eliquis for now in anticipation of permcath - discussed with Dr. Mayer * Continue current antiHTN medications * Avoid potential nephrotoxins * Dose medications for renal function * Case management for outpatient dialysis clinic placement * Granddaughter (primary healthcare project manager) at bedside - updated Subjective Date of service: 11/08/17 Principal diagnosis: Acute HFpEF, CKD Interval history: Patient has no complaint today Objective - Vital Signs Vital signs: Vital Signs - 12hr 11/07/17 11/07/17 11/07/17 21:19 22:20 23:16 Temperature Pulse Rate 63 63 Respiratory 2 L Rate Blood Pressure 141/72 141/72 O2 Sat by Pulse 97 Oximetry 11/08/17 11/08/17 11/08/17 00:24 04:20 05:32 Temperature 98.5 F 97.6 F Pulse Rate 70 75 Respiratory 20 20 20 Rate Blood Pressure 114/64 140/58 O2 Sat by Pulse 97 93 Oximetry - General Appearance General appearance: well-developed, well-nourished EENT: ATNC Respiratory: Present: Decreased Breath Sounds Cardiology: regular, S1S2 Gastrointestinal: normal, no tenderness, no distended Integumentary: no rash Neurologic: no focal deficit Musculoskeletal: other (+edema) Psychiatric: cooperative - Lab 11/08/17 07:28 11/08/17 07:28 Most recent lab results Calcium 8.5 mg/dL (8.4-10.2) 11/08/17 07:28 Phosphorus 3.80 mg/dL (2.5-4.5) 11/04/17 10:41 Urine Creatinine 61.8 mg/dL (0.1-20.0) H 11/06/17 13:20 Ur Total Protein 24 Hr 1962.50 (2-200) H 11/06/17 12:00 Urine Sodium 114 mmol/L 11/03/17 09:06 Urine Total Protein 157 mg/dL (5-11.8) H 11/06/17 12:00
[2017-11-08] MEDS: HEPARIN/ 0.45% NACL-25,000 UNIT/500 ML 25,000 UNIT/500 ML BAG IV SCH (09:20)
[2017-11-08] MEDS: IMDUR PO SCH (09:22)
[2017-11-08] MEDS: APRESOLINE PO SCH ×3 (09:23→20:30)
[2017-11-08] MEDS: ZYLOPRIM PO SCH (09:25)
[2017-11-08] MEDS: LOPRESSOR PO SCH ×2 (09:28→21:58)
--- NOTE | 2017-11-08 09:34 | Progress Note ---
Assessment and Plan acute diastolic heart failure respiratory failure acute on chronic renal failure htn urgency afib hypercougualble state chol nstemi type 2 rec: Continue current dose of blood pressure and AV andie blocking agents awaiting permacath for impending dialysis patient has no cardiac contraindications for permacath once, consider elquis 5mg bid Subjective Date of service: 11/08/17 Principal diagnosis: Acute HFpEF, CKD Interval history: Patient sitting at side of the bed and no chest shortness of breath Objective Vital Signs Temp Pulse Resp BP Pulse Ox 11/08/17 09:28 64 11/08/17 09:23 65 11/08/17 09:22 66 11/08/17 08:02 98.4 F 68 20 138/80 96 11/08/17 05:32 20 11/08/17 04:20 97.6 F 75 20 140/58 93 11/08/17 00:24 98.5 F 70 20 114/64 97 11/07/17 23:16 63 141/72 11/07/17 22:20 2 L 97 11/07/17 21:19 63 141/72 11/07/17 20:57 98.3 F 63 18 141/72 97 11/07/17 20:00 65 11/07/17 15:34 97.1 F L 69 20 166/100 97 11/07/17 11:44 98.3 F 71 20 145/91 99 - Physical Examination General: No Apparent Distress HEENT: Positive: EOMI, Normocephaly, Mucus Membranes Moist Neck: Positive: neck supple, trachea midline, JVD/HJR (elevated) Cardiac: Positive: Irregularly Regular Lungs: Positive: clear to auscultation Neuro: Positive: Grossly Intact Abdomen: Positive: Soft, Active Bowel Sounds. Negative: Tender Skin: Positive: Clear. Negative: Rash Musculoskeletal: Normal Range of Motion Extremities: Absent: edema - Labs and Meds CBC 11/08/17 Range/Units 07:28 Hgb 12.5 (11.8-15.2) gm/dl Hct 38.7 (35.5-45.6) % Plt Count 200 (140-440) K/mm3 Comprehensive Metabolic Panel 11/08/17 Range/Units 07:28 Sodium 139 (137-145) mmol/L Potassium 4.8 (3.6-5.0) mmol/L Chloride 105.4 (98-107) mmol/L Carbon Dioxide 20 L (22-30) mmol/L BUN 59 H (9-20) mg/dL Creatinine 5.4 H (0.8-1.5) mg/dL Glucose 86 (75-100) mg/dL Calcium 8.5 (8.4-10.2) mg/dL - Imaging and Cardiology EKG: image reviewed - Telemetry EKG Rhythm: Atrial Fibrillation (atrial fibrillation 70s to 80s)
[2017-11-08] MEDS ORDERED: NACL 0.9% 100 ML IV PRN (12:29)
[2017-11-08] MEDS ORDERED: HEPARIN IV PRN (12:29)
--- NOTE | 2017-11-08 13:31 | Progress Note ---
Assessment and Plan Assessment and plan: Acute hypoxic respiratory failure - oxygen support - VQ scan low probability for PE Acute on chronic diastolic CHF - beta drew, cardiology consult obtained, echo showed diastolic CHF - Lasix D/yahaira because of CKD Hypertensive urgency - Hydralazine and is on amlodipine, carvedilol, hydralazine when necessary Acute on chronic renal failure - Nephrology is following - will have permcath tomorrow and will have dialysis Atrial fibrillation - Patient is on anticoagulation Malnutrition - Nutrition consult Medication noncompliance - Patient is counseled about medication adherence Tobacco abuse - Patient is counseled about cessation of smoking DVT prophylaxis - on therapeutic heparin Disposition - continue inpatient care History Interval history: Patient was seen and evaluated this morning, didn't have any problems overnight. Hospitalist Physical - Physical exam Narrative exam: Not in cardiopulmonary distress. The patient is obese. Vital signs as documented. Head exam is unremarkable. No scleral icterus . Neck is without jugular venous distension, thyromegaly, or carotid bruits. Lungs are clear to auscultation. Cardiac exam reveals regular rate and Rhythm. Abdominal exam reveals normal bowel sounds, no masses, no organomegaly and no aortic enlargement. Extremities +1 pedal and pretibial edema. VISCOSE CELLAR WORKER: Alert and oriented 3. No focal weakness. - Constitutional Vitals: Temp Pulse Resp BP Pulse Ox 97.8 F 62 20 136/73 98 11/08/17 12:42 11/08/17 12:42 11/08/17 12:42 11/08/17 12:42 11/08/17 12:42 General appearance: Present: no acute distress Results - Labs CBC & Chem 7: 11/08/17 07:28 11/08/17 07:28 Labs: Laboratory Last Values WBC 7.6 K/mm3 (4.5-11.0) 11/05/17 06:35 RBC 4.44 M/mm3 (3.65-5.03) 11/05/17 06:35 Hgb 12.5 gm/dl (11.8-15.2) 11/08/17 07:28 Hct 38.7 % (35.5-45.6) 11/08/17 07:28 MCV 91 fl (84-94) 11/05/17 06:35 MCH 28 pg (28-32) 11/05/17 06:35 MCHC 31 % (32-34) L 11/05/17 06:35 RDW 17.1 % (13.2-15.2) H 11/05/17 06:35 Plt Count 200 K/mm3 (140-440) 11/08/17 07:28 Lymph % (Auto) 20.9 % (13.4-35.0) 11/05/17 06:35 [place] % (Auto) 12.1 % (0.0-7.3) H 11/05/17 06:35 Eos % (Auto) 1.4 % (0.0-4.3) 11/05/17 06:35 Baso % (Auto) 0.5 % (0.0-1.8) 11/05/17 06:35 Lymph # 1.6 K/mm3 (1.2-5.4) 11/05/17 06:35 [place] # 0.9 K/mm3 (0.0-0.8) H 11/05/17 06:35 Eos # 0.1 K/mm3 (0.0-0.4) 11/05/17 06:35 Baso # 0.0 K/mm3 (0.0-0.1) 11/05/17 06:35 Seg Neutrophils % 65.1 % (40.0-70.0) 11/05/17 06:35 Seg Neutrophils # 4.9 K/mm3 (1.8-7.7) 11/05/17 06:35 PT 13.5 Sec. (12.2-14.9) 11/04/17 12:52 INR 0.98 (0.87-1.13) 11/04/17 12:52 APTT 30.1 Sec. (24.2-36.6) 11/04/17 12:52 D-Dimer 439.92 ng/mlDDU (0-234) H 11/03/17 01:43 Heparin Anti-Xa Level 0.38 U.I./ml (0.3-0.7) 11/07/17 18:30 Sodium 139 mmol/L (137-145) 11/08/17 07:28 Potassium 4.8 mmol/L (3.6-5.0) 11/08/17 07:28 Chloride 105.4 mmol/L (98-107) 11/08/17 07:28 Carbon Dioxide 20 mmol/L (22-30) L 11/08/17 07:28 Anion Gap 18 mmol/L 11/08/17 07:28 BUN 59 mg/dL (9-20) H 11/08/17 07:28 Creatinine 5.4 mg/dL (0.8-1.5) H 11/08/17 07:28 Estimated GFR 13 ml/min 11/08/17 07:28 BUN/Creatinine Ratio 11 % 11/08/17 07:28 Glucose 86 mg/dL (75-100) 11/08/17 07:28 POC Glucose 83 (70-105) 11/04/17 16:31 Calcium 8.5 mg/dL (8.4-10.2) 11/08/17 07:28 Phosphorus 3.80 mg/dL (2.5-4.5) 11/04/17 10:41 Total Bilirubin 0.20 mg/dL (0.1-1.2) 11/03/17 01:43 AST 13 units/L (5-40) 11/03/17 01:43 ALT 11 units/L (7-56) 11/03/17 01:43 Alkaline Phosphatase 138 units/L (35-129) H 11/03/17 01:43 Troponin T 0.020 ng/mL (0.00-0.029) 11/03/17 01:43 NT-Pro-B Natriuret Pep 2809 pg/mL (0-900) H 11/03/17 01:43 Serum Total Protein 6.4 g/dL (6.1-8.1) 11/04/17 10:41 Total Protein 7.6 g/dL (6.3-8.2) 11/03/17 01:43 Albumin 2.9 g/dL (3.8-4.8) L 11/04/17 10:41 Albumin/Globulin Ratio 0.8 % 11/03/17 01:43 Sdxha-6-Fuopuyqtm 0.3 g/dL (0.2-0.3) 11/04/17 10:41 Sqtvw-2-Divtlmpzy 0.8 g/dL (0.5-0.9) 11/04/17 10:41 Beta Globulins 0.4 g/dL (0.2-0.5) 11/04/17 10:41 Gamma Globulins 1.7 g/dL (0.8-1.7) 11/04/17 10:41 Abnorm Protein Band 1 see below 11/04/17 10:41 PEP Interpretation see below H 11/04/17 10:41 PTH Intact 253.2 pg/mL (15-65) H 11/04/17 10:41 Urine Color Yellow (Yellow) 11/03/17 09:06 Urine Turbidity Clear (Clear) 11/03/17 09:06 Urine pH 5.0 (5.0-7.0) 11/03/17 09:06 Ur Specific [place] 1.012 (1.003-1.030) 11/03/17 09:06 Urine Protein 100 mg/dl mg/dL (Negative) 11/03/17 09:06 Urine Glucose (UA) Neg mg/dL (Negative) 11/03/17 09:06 Urine Ketones Neg mg/dL (Negative) 11/03/17 09:06 Urine Blood Sm (Negative) 11/03/17 09:06 Urine Nitrite Neg (Negative) 11/03/17 09:06 Urine Bilirubin Neg (Negative) 11/03/17 09:06 Urine Urobilinogen < 2.0 mg/dL (<2.0) 11/03/17 09:06 Ur Leukocyte Esterase Sm (Negative) 11/03/17 09:06 Urine WBC (Auto) 7.0 /HPF (0.0-6.0) H 11/03/17 09:06 Urine RBC (Auto) 2.0 /HPF (0.0-6.0) 11/03/17 09:06 U Epithel Cells (Auto) 3.0 /HPF (0-13.0) 11/03/17 09:06 Urine Bacteria (Auto) 2+ /HPF (Negative) 11/03/17 09:06 Urine Total Volume 1250 11/06/17 13:20 Urine Creatinine 61.8 mg/dL (0.1-20.0) H 11/06/17 13:20 Ur Creatinine 24 Hour 0.8 (0.8-2.8) 11/06/17 12:00 Height (in) 69.0 inches 11/06/17 13:20 Weight (lb) 243.0 lbs 11/06/17 13:20 Creatinine Clearance 7 11/06/17 13:20 Ur Total Protein 24 Hr 1962.50 (2-200) H 11/06/17 12:00 Protein/Creatinin Ratio 3.10 11/03/17 09:06 Urine Sodium 114 mmol/L 11/03/17 09:06 Urine Total Protein 157 mg/dL (5-11.8) H 11/06/17 12:00 SHANITA Screen Negative (Negative) 11/04/17 10:41 Hepatitis A IgM Ab Non-reactive (NonReactive) 11/04/17 10:41 Hep Bs Antigen Non-reactive (Negative) 11/04/17 10:41 Hep B Core IgM Ab Non-reactive (NonReactive) 11/04/17 10:41 Hepatitis C Antibody Non-reactive (NonReactive) 11/04/17 10:41
[2017-11-08] MEDS: FLOMAX PO SCH (16:58)
[2017-11-08] MEDS: FLONASE NS SCH (17:21)
[2017-11-09 06:19] LABS: Basophils % (Auto) 0.8 % (0.0-1.8); Eosinophils # (Auto) 0.2 K/mm3 (0.0-0.4); Eosinophils % (Auto) 2.8 % (0.0-4.3); Hematocrit 38.9 % (35.5-45.6); Hemoglobin 12.5 gm/dl (11.8-15.2); Lymphocytes # (Auto) 1.4 K/mm3 (1.2-5.4); Lymphocytes % (Auto) 24.9 % (13.4-35.0); Mean Corpuscular HGB Conc 32 % (32-34); Mean Corpuscular Hemoglobin 29 pg (28-32); Mean Corpuscular Volume 91 fl (84-94); Monocytes # (Auto) 0.8 K/mm3 (0.0-0.8); Monocytes % (Auto) 13.8 % (0.0-7.3); Platelet Count 199 K/mm3 (140-440); Red Blood Count 4.29 M/mm3 (3.65-5.03); Red Cell Distribution Width 16.7 % (13.2-15.2)
[2017-11-09 06:30] LABS: INR 0.96 (0.87-1.13)
[2017-11-09 06:40] LABS: Calcium 8.7 mg/dL (8.4-10.2)
[2017-11-09] MEDS: TYLENOL PO SCH ×3 (08:33→17:45)
[2017-11-09] MEDS: APRESOLINE PO SCH ×3 (09:14→20:25)
--- NOTE | 2017-11-09 09:57 | Progress Note ---
Assessment and Plan Impression: * End-stage renal disease --24h urine CrCl 7ml/min * Hypertension * Atrial fibrillation * Proteinuria * Diastolic heart failure * Metabolic acidosis * Peripheral edema Plan: * Patient is scheduled for permcath insertion today * Hemodialysis to follow * Hold initiation of Eliquis for now in anticipation of permcath - * Continue current antiHTN medications * Avoid potential nephrotoxins * Dose medications for renal function * Case management for outpatient dialysis clinic placement Subjective Date of service: 11/09/17 Principal diagnosis: Acute HFpEF, CKD Interval history: Patient is comfortable today. He does have some nausea but no vomiting. Denies any shortness of breath. Objective - Vital Signs Vital signs: Vital Signs - 12hr 11/08/17 11/08/17 11/09/17 21:58 23:31 03:25 Temperature Pulse Rate 65 70 Respiratory 20 Rate Blood Pressure 142/79 Blood Pressure [Right] O2 Sat by Pulse Oximetry 11/09/17 11/09/17 11/09/17 04:30 04:48 07:41 Temperature 98.2 F 97.9 F Pulse Rate 74 70 70 Respiratory 20 20 Rate Blood Pressure 129/67 Blood Pressure 141/66 [Right] O2 Sat by Pulse 97 97 Oximetry 11/09/17 11/09/17 11/09/17 09:09 09:11 09:26 Temperature 97.9 F Pulse Rate 92 H 74 Respiratory 20 Rate Blood Pressure Blood Pressure 129/67 [Right] O2 Sat by Pulse 98 95 Oximetry - General Appearance General appearance: well-developed, well-nourished, appears stated age EENT: PERRL, mucous membranes moist Neck: no JVD, no thyromegaly, no carotid bruit, supple Respiratory: Present: Clear to Ascultation Cardiology: regular, normal heart rate, S1S2, no murmurs Gastrointestinal: normal, normoactive bowel sounds Integumentary: no rash, other (1+ edema) - Lab 11/09/17 05:47 11/09/17 05:47 Most recent lab results Calcium 8.7 mg/dL (8.4-10.2) 11/09/17 05:47 Phosphorus 3.80 mg/dL (2.5-4.5) 11/04/17 10:41 Urine Creatinine 61.8 mg/dL (0.1-20.0) H 11/06/17 13:20 Ur Total Protein 24 Hr 1962.50 (2-200) H 11/06/17 12:00 Urine Sodium 114 mmol/L 11/03/17 09:06 Urine Total Protein 157 mg/dL (5-11.8) H 11/06/17 12:00
[2017-11-09] MEDS ORDERED: ANCEF/STERILE WATER 2 GM/20 ML 2 GM/20 ML SYRINGE IV ONE (12:09)
[2017-11-09] MEDS ORDERED: XYLOCAINE 2% INFILTRATI ONE ×2 (12:10→12:57)
[2017-11-09] MEDS ORDERED: HEPARIN/NS 5000 UNIT/500ML(CATH LAB) 1,000 ML IR ONE (12:10)
[2017-11-09] MEDS ORDERED: HEPARIN 10,000 UNITS/10 ML ONE (12:10)
[2017-11-09] MEDS ORDERED: VERSED ONE (12:11)
--- NOTE | 2017-11-09 12:15 | Consultation ---
History of Present Illness - Reason for Consult Consult date: 11/09/17 Permacath placement - History of Present Illness Patient with history of CRI progressively worsening Admitted with SOB. Also has h/o CHF, HTN Now required dialysis access for fluid management. Currently denies SOB He is left-handed. Has not had prior dialysis access procedures or central lines Past History Past Medical History: heart failure, hypertension Past Surgical History: No surgical history Social history: smoking (half pack cigarettes a day), full code. denies: alcohol abuse, prescription drug abuse, IV drug use Family history: no significant family history Medications and Allergies Allergies Allergy/AdvReac Type Severity Reaction Status Date / Time No Known Allergies Allergy Unverified 11/03/17 01:36 Home Medications Medication Instructions Recorded Confirmed Last Taken Type Acetaminophen [Shake That Ache] 500 mg PO Q6H 11/03/17 11/03/17 Unknown History Albuterol Sulfate [Ventolin HFA] 2 puff IH Q4H PRN 11/03/17 11/03/17 11/02/17 History Allopurinol 300 mg PO DAILY 11/03/17 11/03/17 11/02/17 History Carvedilol [Coreg] 25 mg PO BID 11/03/17 11/03/17 11/02/17 History Fluticasone [Flonase] 1 spray NS QDAY 11/03/17 11/03/17 11/02/17 History Loratadine [Claritin] 10 mg PO DAILY 11/03/17 11/03/17 11/02/17 History Losartan [Cozaar] 100 mg PO QDAY 11/03/17 11/03/17 11/02/17 History Tamsulosin [Flomax] 0.4 mg PO QDAY 11/03/17 11/03/17 11/02/17 History amLODIPine [Norvasc] 10 mg PO DAILY 11/03/17 11/03/17 11/02/17 History Active Meds: Active Medications Acetaminophen (Tylenol) 500 mg PO Q6HR LYUDMILA Last Admin: 11/09/17 08:33 Dose: Not Given Albuterol (Proair) 2 puff IH Q4H PRN PRN Reason: Shortness Of Breath Albuterol (Proventil) 2.5 mg IH Q4HRT PRN PRN Reason: Shortness Of Breath Allopurinol (Zyloprim) 150 mg PO DAILY [facility] Last Admin: 11/08/17 09:25 Dose: 150 mg Fluticasone Propionate (Flonase) 50 mcg NS QDAY [facility] Last Admin: 11/08/17 17:21 Dose: 50 mcg Heparin Sodium (Porcine) (Heparin) 5,000 unit IV DEIRDRE PRN PRN Reason: hemodialysis Hydralazine HCl (Apresoline) 100 mg PO TID [facility] Last Admin: 11/09/17 09:14 Dose: Not Given Heparin Sodium/Sodium Chloride (Heparin/ 0.45% Nacl-25,000 Unit/500 Ml) 25,000 unit in 500 mls @ 30 mls/hr IV TITR [facility]; Protocol Last Admin: 11/08/17 09:20 Dose: 2,150 units/hr, 43 mls/hr Sodium Chloride (Nacl 0.9%) 100 mls @ 999 mls/hr IV DEIRDRE PRN PRN Reason: Hypotension Isosorbide Mononitrate (Imdur) 30 mg PO QDAY [facility] Last Admin: 11/08/17 09:22 Dose: 30 mg Metoprolol Tartrate (Lopressor) 100 mg PO BID [facility] Last Admin: 11/08/17 21:58 Dose: 100 mg Tamsulosin HCl (Flomax) 0.4 mg PO QDAY [facility] Last Admin: 11/08/17 16:58 Dose: 0.4 mg Review of Systems Constitutional: weakness Ears, nose, mouth and throat: no hoarseness Cardiovascular: no chest pain, no orthopnea, no leg edema Respiratory: no cough, no wheezing Gastrointestinal: no abdominal pain, no nausea, no vomiting Musculoskeletal: no arm numbness/tingling Integumentary: no rash Neurological: no paralysis Psychiatric: no anxiety Hematologic/Lymphatic: no easy bleeding Allergic/Immunologic: no wheezing Exam - Constitutional Vitals: Temp Pulse Resp BP Pulse Ox 97.9 F 74 20 129/67 95 11/09/17 09:26 11/09/17 09:26 11/09/17 09:26 11/09/17 09:26 11/09/17 09:26 General appearance: Present: no acute distress - EENT Eyes: Present: EOM intact ENT: hearing intact - Neck Neck: Present: normal ROM - Respiratory Respiratory effort: normal - Cardiovascular Rhythm: regular - Extremities Extremities: No edema - Abdominal General gastrointestinal: Present: soft, non-tender, non-distended - Integumentary Integumentary: Present: clear, warm, dry - Musculoskeletal Musculoskeletal: generalized weakness - Psychiatric Psychiatric: appropriate mood/affect - Neurologic Neurologic: moves all extremities Results - Labs CBC & Chem 7: 11/09/17 05:47 11/09/17 05:47 Labs: Abnormal lab results 11/09/17 11/09/17 Range/Units 05:47 05:47 RDW 16.7 H (13.2-15.2) % [place] % (Auto) 13.8 H (0.0-7.3) % Carbon Dioxide 21 L (22-30) mmol/L BUN 58 H (9-20) mg/dL Creatinine 5.6 H (0.8-1.5) mg/dL Assessment and Plan Permacath placement in [address] today Keep NPO Discussed with patient procedure in detail including risks, benefits. All questions answered
[2017-11-09] MEDS ORDERED: NACL 0.9% 250ML 250 ML ONE (12:25)
[2017-11-09] MEDS ORDERED: SUBLIMAZE ONE (12:38)
--- NOTE | 2017-11-09 12:51 | Progress Note ---
Assessment and Plan Currently stable cardiac status. Continue current cardiac regimen. Pt for permacath placement today. Following permacath placement, consider conversion of systemic anticoagulation from heprin gtt to Eliquis 5mg PO BID. The patient has been seen in conjunction with Dr. Del Toro who agrees with the assessment and plan of care. - Patient Problems (1) Acute diastolic HF (heart failure) Current Visit: Yes Status: Acute (2) Atrial fibrillation Current Visit: Yes Status: Acute (3) ESRD (end stage renal disease) Current Visit: Yes Status: Acute (4) Hypertensive emergency Current Visit: Yes Status: Acute (5) Pulmonary HTN Current Visit: Yes Status: Chronic (6) Tobacco abuse Current Visit: Yes Status: Chronic Subjective Date of service: 11/09/17 Principal diagnosis: Acute HFpEF, CKD Interval history: pt resting comfortably in bed, no current complaints. Tele reviewed - pt remains in AFib with CVR. Awaiting permacath placement today. Objective Last Vital Signs Temp 97.9 F 11/09/17 09:26 Pulse 74 11/09/17 09:26 Resp 20 11/09/17 09:26 BP 129/67 11/09/17 09:26 Pulse Ox 95 11/09/17 09:26 - Physical Examination General: No Apparent Distress HEENT: Positive: EOMI, Normocephaly, Mucus Membranes Moist Neck: Positive: neck supple, trachea midline, JVD/HJR (elevated) Cardiac: Positive: irregularly irregular, S1/S2 Lungs: Positive: clear to auscultation Neuro: Positive: Grossly Intact Abdomen: Positive: Soft, Active Bowel Sounds. Negative: Tender Skin: Positive: Clear. Negative: Rash Musculoskeletal: Normal Range of Motion Extremities: Absent: edema - Labs and Meds Coagulation 11/09/17 Range/Units 05:47 PT 13.3 (12.2-14.9) Sec. INR 0.96 (0.87-1.13) CBC 11/09/17 Range/Units 05:47 WBC 5.8 (4.5-11.0) K/mm3 RBC 4.29 (3.65-5.03) M/mm3 Hgb 12.5 (11.8-15.2) gm/dl Hct 38.9 (35.5-45.6) % Plt Count 199 (140-440) K/mm3 Lymph # 1.4 (1.2-5.4) K/mm3 [place] # 0.8 (0.0-0.8) K/mm3 Eos # 0.2 (0.0-0.4) K/mm3 Baso # 0.0 (0.0-0.1) K/mm3 Comprehensive Metabolic Panel 11/09/17 Range/Units 05:47 Sodium 141 (137-145) mmol/L Potassium 5.0 (3.6-5.0) mmol/L Chloride 105.7 (98-107) mmol/L Carbon Dioxide 21 L (22-30) mmol/L BUN 58 H (9-20) mg/dL Creatinine 5.6 H (0.8-1.5) mg/dL Glucose 78 (75-100) mg/dL Calcium 8.7 (8.4-10.2) mg/dL - Imaging and Cardiology EKG: image reviewed
--- NOTE | 2017-11-09 13:15 | Operative Report ---
Operative Report Operative Report: Vascular Surgery Operative Note Indications: Progressive renal decline with need for hemodialysis access. Surgeon: Isreal Issa MD Anesthesia: Local with IV Sedation ASA Class: ASA 3 - Patient with moderate systemic disease with functional limitations Preop Diagnosis: Renal Failure requiring long-term dialysis access Postop Diagnosis: Same as above Procedure: Placement of tunneled dialysis catheter with ultrasound guidance into the Right Jugular Vein Findings: Patent Right IJ Vein Estimated Blood Loss: Minimal Catheter: 24 cm [place] Complications: no complications were noted Description of Procedure: Patient was seen and evaluated. The risks, benefits, complications, treatment options, and expected outcomes were discussed with the patient. The patient concurred with the proposed plan, giving informed consent. The site of surgery properly noted/marked. The patient was taken to blood bank laboratory professional, identified as and the procedure verified. A Time Out was held and the above information confirmed along with the administration of antibiotics. The operative sites were prepped and draped in the usual sterile fashion. Using ultrasound I evaluated the IJ vein which was compressible and patent. I accessed this using the large bore needle followed by wire after using 1% lidocaine for local. Using fluoroscopy I followed the wire into the right ventricle and measured the catheter to virgilio the chest area. After using 1% lidocaine a small skin incision was made in the upper chest and the catheter was tunneled up to the neck access. I dilated the tract with 12F and 14F dilaters then placed the 16F peel-away sheath over the wire and I followed this in to the SVC using fluoroscopy. I then placed the dialysis catheter through the peel-away sheath and the sheath was removed. Each port of the catheter withdrew venous blood easily and vigorously, ach flushed easily. On fluoroscopy the tip of the catheter was in the right atrium and there were no kinks in the catheter. The catheter was sutured in place with prolene followed by Biopatch and sterile dressings. The neck access was closed with 3-0 Vicryl and sterile dressings. The patient tolerated the procedure well and there were no complications. Isreal Issa MD Vascular Surgery [facility]
--- NOTE | 2017-11-09 13:17 | Post Operative Note ---
Pre-op diagnosis: Acute on Chronic Renal Failure Post-op diagnosis: same Findings: 1. Ultrasound-guided access of right IJ vein 2. Placement of right IJ Permacath Anesthesia: MAC, local Surgeon: TEJAL HARRIS Estimated blood loss: minimal Pathology: none Specimen disposition: other Condition: stable Disposition: floor
--- NOTE | 2017-11-09 14:24 | Progress Note ---
Assessment and Plan Assessment and plan: Acute hypoxic respiratory failure - oxygen support - VQ scan low probability for PE - Resolved Acute on chronic diastolic CHF - beta drew, cardiology consult obtained, echo showed diastolic CHF Hypertensive urgency - Hydralazine and is on amlodipine, carvedilol, hydralazine when necessary Acute on chronic renal failure - Nephrology is following - Horaciom caththis morning and will have dialysis Atrial fibrillation - Patient was on heparin and now changed to eliquis Malnutrition - Nutrition consult Medication noncompliance - Patient is counseled about medication adherence Tobacco abuse - Patient is counseled about cessation of smoking DVT prophylaxis - on therapeutic heparin Disposition - continue inpatient care History Interval history: Patient was seen and evaluated this morning, didn't have any problems overnight. Hospitalist Physical - Physical exam Narrative exam: Not in cardiopulmonary distress. The patient is obese. Vital signs as documented. Head exam is unremarkable. No scleral icterus . Neck is without jugular venous distension, thyromegaly, or carotid bruits. Lungs are clear to auscultation. Cardiac exam reveals regular rate and Rhythm. Abdominal exam reveals normal bowel sounds, no masses, no organomegaly and no aortic enlargement. Extremities +1 pedal and pretibial edema. 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 No focal weakness. - Constitutional Vitals: Temp Pulse Resp BP Pulse Ox 97.9 F 74 20 129/67 95 11/09/17 09:26 11/09/17 09:26 11/09/17 09:26 11/09/17 09:26 11/09/17 09:26 General appearance: Present: no acute distress Results - Labs CBC & Chem 7: 11/09/17 05:47 11/09/17 05:47 Labs: Laboratory Last Values WBC 5.8 K/mm3 (4.5-11.0) 11/09/17 05:47 RBC 4.29 M/mm3 (3.65-5.03) 11/09/17 05:47 Hgb 12.5 gm/dl (11.8-15.2) 11/09/17 05:47 Hct 38.9 % (35.5-45.6) 11/09/17 05:47 MCV 91 fl (84-94) 11/09/17 05:47 MCH 29 pg (28-32) 11/09/17 05:47 MCHC 32 % (32-34) 11/09/17 05:47 RDW 16.7 % (13.2-15.2) H 11/09/17 05:47 Plt Count 199 K/mm3 (140-440) 11/09/17 05:47 Lymph % (Auto) 24.9 % (13.4-35.0) 11/09/17 05:47 Yates % (Auto) 13.8 % (0.0-7.3) H 11/09/17 05:47 Eos % (Auto) 2.8 % (0.0-4.3) 11/09/17 05:47 Baso % (Auto) 0.8 % (0.0-1.8) 11/09/17 05:47 Lymph # 1.4 K/mm3 (1.2-5.4) 11/09/17 05:47 Yates # 0.8 K/mm3 (0.0-0.8) 11/09/17 05:47 Eos # 0.2 K/mm3 (0.0-0.4) 11/09/17 05:47 Baso # 0.0 K/mm3 (0.0-0.1) 11/09/17 05:47 Seg Neutrophils % 57.7 % (40.0-70.0) 11/09/17 05:47 Seg Neutrophils # 3.4 K/mm3 (1.8-7.7) 11/09/17 05:47 PT 13.3 Sec. (12.2-14.9) 11/09/17 05:47 INR 0.96 (0.87-1.13) 11/09/17 05:47 APTT 30.1 Sec. (24.2-36.6) 11/04/17 12:52 D-Dimer 439.92 ng/mlDDU (0-234) H 11/03/17 01:43 Heparin Anti-Xa Level 0.69 U.I./ml (0.3-0.7) 11/08/17 17:24 Sodium 141 mmol/L (137-145) 11/09/17 05:47 Potassium 5.0 mmol/L (3.6-5.0) 11/09/17 05:47 Chloride 105.7 mmol/L (98-107) 11/09/17 05:47 Carbon Dioxide 21 mmol/L (22-30) L 11/09/17 05:47 Anion Gap 19 mmol/L 11/09/17 05:47 BUN 58 mg/dL (9-20) H 11/09/17 05:47 Creatinine 5.6 mg/dL (0.8-1.5) H 11/09/17 05:47 Estimated GFR 12 ml/min 11/09/17 05:47 BUN/Creatinine Ratio 10 % 11/09/17 05:47 Glucose 78 mg/dL (75-100) 11/09/17 05:47 POC Glucose 83 (70-105) 11/04/17 16:31 Calcium 8.7 mg/dL (8.4-10.2) 11/09/17 05:47 Phosphorus 3.80 mg/dL (2.5-4.5) 11/04/17 10:41 Total Bilirubin 0.20 mg/dL (0.1-1.2) 11/03/17 01:43 AST 13 units/L (5-40) 11/03/17 01:43 ALT 11 units/L (7-56) 11/03/17 01:43 Alkaline Phosphatase 138 units/L (35-129) H 11/03/17 01:43 Troponin T 0.020 ng/mL (0.00-0.029) 11/03/17 01:43 NT-Pro-B Natriuret Pep 2809 pg/mL (0-900) H 11/03/17 01:43 Serum Total Protein 6.4 g/dL (6.1-8.1) 11/04/17 10:41 Total Protein 7.6 g/dL (6.3-8.2) 11/03/17 01:43 Albumin 2.9 g/dL (3.8-4.8) L 11/04/17 10:41 Albumin/Globulin Ratio 0.8 % 11/03/17 01:43 Wqxjn-0-Axvobqztp 0.3 g/dL (0.2-0.3) 11/04/17 10:41 Rdxua-5-Cpysenyxg 0.8 g/dL (0.5-0.9) 11/04/17 10:41 Beta Globulins 0.4 g/dL (0.2-0.5) 11/04/17 10:41 Gamma Globulins 1.7 g/dL (0.8-1.7) 11/04/17 10:41 Abnorm Protein Band 1 see below 11/04/17 10:41 PEP Interpretation see below H 11/04/17 10:41 PTH Intact 253.2 pg/mL (15-65) H 11/04/17 10:41 Urine Color Yellow (Yellow) 11/03/17 09:06 Urine Turbidity Clear (Clear) 11/03/17 09:06 Urine pH 5.0 (5.0-7.0) 11/03/17 09:06 Ur Specific [place] 1.012 (1.003-1.030) 11/03/17 09:06 Urine Protein 100 mg/dl mg/dL (Negative) 11/03/17 09:06 Urine Glucose (UA) Neg mg/dL (Negative) 11/03/17 09:06 Urine Ketones Neg mg/dL (Negative) 11/03/17 09:06 Urine Blood Sm (Negative) 11/03/17 09:06 Urine Nitrite Neg (Negative) 11/03/17 09:06 Urine Bilirubin Neg (Negative) 11/03/17 09:06 Urine Urobilinogen < 2.0 mg/dL (<2.0) 11/03/17 09:06 Ur Leukocyte Esterase Sm (Negative) 11/03/17 09:06 Urine WBC (Auto) 7.0 /HPF (0.0-6.0) H 11/03/17 09:06 Urine RBC (Auto) 2.0 /HPF (0.0-6.0) 11/03/17 09:06 U Epithel Cells (Auto) 3.0 /HPF (0-13.0) 11/03/17 09:06 Urine Bacteria (Auto) 2+ /HPF (Negative) 11/03/17 09:06 Urine Total Volume 1250 11/06/17 13:20 Urine Creatinine 61.8 mg/dL (0.1-20.0) H 11/06/17 13:20 Ur Creatinine 24 Hour 0.8 (0.8-2.8) 11/06/17 12:00 Height (in) 69.0 inches 11/06/17 13:20 Weight (lb) 243.0 lbs 11/06/17 13:20 Creatinine Clearance 7 11/06/17 13:20 Ur Total Protein 24 Hr 1962.50 (2-200) H 11/06/17 12:00 Protein/Creatinin Ratio 3.10 11/03/17 09:06 Urine Sodium 114 mmol/L 11/03/17 09:06 Urine Total Protein 157 mg/dL (5-11.8) H 11/06/17 12:00 SHANITA Screen Negative (Negative) 11/04/17 10:41 Hepatitis A IgM Ab Non-reactive (NonReactive) 11/04/17 10:41 Hep Bs Antigen Non-reactive (Negative) 11/04/17 10:41 Hep B Core IgM Ab Non-reactive (NonReactive) 11/04/17 10:41 Hepatitis C Antibody Non-reactive (NonReactive) 11/04/17 10:41
[2017-11-09] MEDS: FLOMAX PO SCH (15:58)
[2017-11-09] MEDS: LOPRESSOR PO SCH ×2 (15:59→21:49)
[2017-11-09] MEDS: IMDUR PO SCH (15:59)
[2017-11-09] MEDS: FLONASE NS SCH (17:43)
[2017-11-09] MEDS: ZYLOPRIM PO SCH (17:44)
[2017-11-09] MEDS ORDERED: NACL 0.9 (PRIMING MACHINE ONLY DIALYSIS) MC ONE (19:42)
[2017-11-09] MEDS: ELIQUIS PO SCH (21:49)
[2017-11-10 06:36] LABS: Calcium 8.8 mg/dL (8.4-10.2)
[2017-11-10] MEDS: TYLENOL PO SCH ×5 (06:43→23:57)
--- NOTE | 2017-11-10 09:07 | Progress Note ---
Assessment and Plan Impression: * End-stage renal disease --24h urine CrCl 7ml/min * Hypertension * Atrial fibrillation * Proteinuria * Diastolic heart failure * Metabolic acidosis * Peripheral edema Plan: * Status post PermCath placement on 11/09/2017 * Uneventful first dialysis treatment yesterday. Shall plan to dialyze him again today * Anticoagulation as per cardiology services * Continue current antiHTN medications * Avoid potential nephrotoxins * Dose medications for renal function * Case management for outpatient dialysis clinic placement. Patient lives close to [facility] Date of service: 11/10/17 Principal diagnosis: Acute HFpEF, CKD Interval history: Patient is status post right IJ PermCath placement and initiation of dialysis. Denies any chest pain or shortness of breath today. No nausea or vomiting. Objective - Vital Signs Vital signs: Vital Signs - 12hr 11/09/17 11/09/17 11/09/17 21:48 21:49 21:56 Temperature 98.3 F Pulse Rate 83 71 75 Respiratory 20 20 Rate Blood Pressure 159/85 159/85 Blood Pressure 135/66 [Right] O2 Sat by Pulse 99 97 98 Oximetry 11/09/17 11/10/17 11/10/17 22:00 00:16 00:17 Temperature 98.5 F Pulse Rate 70 74 Respiratory 20 Rate Blood Pressure 140/92 Blood Pressure [Right] O2 Sat by Pulse 100 96 99 Oximetry 11/10/17 05:02 Temperature Pulse Rate 73 Respiratory Rate Blood Pressure Blood Pressure [Right] O2 Sat by Pulse Oximetry - General Appearance General appearance: well-developed, well-nourished, appears stated age EENT: PERRL, mucous membranes moist Neck: no JVD, no thyromegaly, no carotid bruit, supple, other (right IJ PermCath in place) Respiratory: Present: Clear to Ascultation Cardiology: irregularly irregular, normal heart rate, S1S2, no murmurs Gastrointestinal: normal, normoactive bowel sounds Integumentary: no rash, other (1+ edema) - Lab 11/09/17 05:47 11/10/17 05:41 Most recent lab results Calcium 8.8 mg/dL (8.4-10.2) 11/10/17 05:41 Phosphorus 3.80 mg/dL (2.5-4.5) 11/04/17 10:41 Urine Creatinine 61.8 mg/dL (0.1-20.0) H 11/06/17 13:20 Ur Total Protein 24 Hr 1962.50 (2-200) H 11/06/17 12:00 Urine Sodium 114 mmol/L 11/03/17 09:06 Urine Total Protein 157 mg/dL (5-11.8) H 11/06/17 12:00
[2017-11-10] MEDS ORDERED: NACL 0.9% 100 ML IV PRN ×2 (09:30→15:06)
[2017-11-10] MEDS: APRESOLINE PO SCH ×3 (09:33→21:30)
[2017-11-10] MEDS: LOPRESSOR PO SCH ×3 (09:34→21:30)
[2017-11-10] MEDS: ELIQUIS PO SCH ×3 (09:35→21:30)
[2017-11-10] MEDS ORDERED: NACL 0.9 (PRIMING MACHINE ONLY DIALYSIS) MC ONE (12:23)
--- NOTE | 2017-11-10 13:01 | Progress Note ---
Assessment and Plan Assessment and plan: 76 year old -Fijian male with past medical history significant for CHF , hypertension presented to the emergency department complaining of shortness of breath that started last night. Shortness of breath is getting worse with exertion no alleviating factors identified. Patient admitted for wheezing, cough and bilateral leg swelling. Patient denied chest pain, nausea, vomiting. Patient had history of CHF and stop taking medications 2 years ago. Didn't see a doctor for the last 2 years. Acute hypoxic respiratory failure - oxygen support - VQ scan low probability for PE - Resolved Acute on chronic diastolic CHF - beta drew, cardiology consult obtained, echo showed diastolic CHF Hypertensive urgency - Hydralazine and is on amlodipine, carvedilol, hydralazine when necessary - Will readjust due to elevated BP if no improvement with dialysis Acute Kidney Injury on chronic renal failure - Nephrology is following -Awaiting chair time for outaptient dialysis - [facility] cath place and patient dialyzed Atrial fibrillation - Patient was on heparin and now changed to eliquis 5MG PO BID -Follow with cardioilogy 3-5 days from discharge day Hypercoagluable state -ON Eliquis Malnutrition - Nutrition consult Medication noncompliance - Patient is counseled about medication adherence Tobacco abuse - Patient is counseled about cessation of smoking Metabolic acidosis -Expect improvement with Dialysis DVT prophylaxis - on therapeutic heparin Disposition - continue inpatient care History Interval history: Patient seen and examined in no acute distress, sitting up at bedside, family at bedside Hospitalist Physical - Physical exam Narrative exam: Not in cardiopulmonary distress. The patient is obese. Vital signs as documented. Head exam is unremarkable. No scleral icterus . Neck is without jugular venous distension, thyromegaly, or carotid bruits. Lungs are clear to auscultation. Cardiac exam reveals regular rate and Rhythm. Abdominal exam reveals normal bowel sounds, no masses, no organomegaly and no aortic enlargement. Extremities +1 pedal and pretibial edema. 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 No focal weakness. - Constitutional Vitals: Temp Pulse Resp BP Pulse Ox 98.0 F 72 20 176/102 98 11/10/17 10:00 11/10/17 12:30 11/10/17 10:00 11/10/17 12:30 11/10/17 08:03 General appearance: Present: no acute distress Results - Labs CBC & Chem 7: 11/09/17 05:47 11/10/17 05:41 Labs: Laboratory Last Values WBC 5.8 K/mm3 (4.5-11.0) 11/09/17 05:47 RBC 4.29 M/mm3 (3.65-5.03) 11/09/17 05:47 Hgb 12.5 gm/dl (11.8-15.2) 11/09/17 05:47 Hct 38.9 % (35.5-45.6) 11/09/17 05:47 MCV 91 fl (84-94) 11/09/17 05:47 MCH 29 pg (28-32) 11/09/17 05:47 MCHC 32 % (32-34) 11/09/17 05:47 RDW 16.7 % (13.2-15.2) H 11/09/17 05:47 Plt Count 199 K/mm3 (140-440) 11/09/17 05:47 Lymph % (Auto) 24.9 % (13.4-35.0) 11/09/17 05:47 [place] % (Auto) 13.8 % (0.0-7.3) H 11/09/17 05:47 Eos % (Auto) 2.8 % (0.0-4.3) 11/09/17 05:47 Baso % (Auto) 0.8 % (0.0-1.8) 11/09/17 05:47 Lymph # 1.4 K/mm3 (1.2-5.4) 11/09/17 05:47 [place] # 0.8 K/mm3 (0.0-0.8) 11/09/17 05:47 Eos # 0.2 K/mm3 (0.0-0.4) 11/09/17 05:47 Baso # 0.0 K/mm3 (0.0-0.1) 11/09/17 05:47 Seg Neutrophils % 57.7 % (40.0-70.0) 11/09/17 05:47 Seg Neutrophils # 3.4 K/mm3 (1.8-7.7) 11/09/17 05:47 PT 13.3 Sec. (12.2-14.9) 11/09/17 05:47 INR 0.96 (0.87-1.13) 11/09/17 05:47 APTT 30.1 Sec. (24.2-36.6) 11/04/17 12:52 D-Dimer 439.92 ng/mlDDU (0-234) H 11/03/17 01:43 Heparin Anti-Xa Level < 0.10 U.I./ml (0.3-0.7) L 11/09/17 20:40 Sodium 139 mmol/L (137-145) 11/10/17 05:41 Potassium 4.9 mmol/L (3.6-5.0) 11/10/17 05:41 Chloride 103.3 mmol/L (98-107) 11/10/17 05:41 Carbon Dioxide 23 mmol/L (22-30) 11/10/17 05:41 Anion Gap 18 mmol/L 11/10/17 05:41 BUN 44 mg/dL (9-20) H 11/10/17 05:41 Creatinine 4.4 mg/dL (0.8-1.5) H 11/10/17 05:41 Estimated GFR 16 ml/min 11/10/17 05:41 BUN/Creatinine Ratio 10 % 11/10/17 05:41 Glucose 92 mg/dL (75-100) 11/10/17 05:41 POC Glucose 83 (70-105) 11/04/17 16:31 Calcium 8.8 mg/dL (8.4-10.2) 11/10/17 05:41 Phosphorus 3.80 mg/dL (2.5-4.5) 11/04/17 10:41 Total Bilirubin 0.20 mg/dL (0.1-1.2) 11/03/17 01:43 AST 13 units/L (5-40) 11/03/17 01:43 ALT 11 units/L (7-56) 11/03/17 01:43 Alkaline Phosphatase 138 units/L (35-129) H 11/03/17 01:43 Troponin T 0.020 ng/mL (0.00-0.029) 11/03/17 01:43 NT-Pro-B Natriuret Pep 2809 pg/mL (0-900) H 11/03/17 01:43 Serum Total Protein 6.4 g/dL (6.1-8.1) 11/04/17 10:41 Total Protein 7.6 g/dL (6.3-8.2) 11/03/17 01:43 Albumin 2.9 g/dL (3.8-4.8) L 11/04/17 10:41 Albumin/Globulin Ratio 0.8 % 11/03/17 01:43 Fjdzw-6-Zgrpvpmsf 0.3 g/dL (0.2-0.3) 11/04/17 10:41 Vmqhu-3-Yatywwqhi 0.8 g/dL (0.5-0.9) 11/04/17 10:41 Beta Globulins 0.4 g/dL (0.2-0.5) 11/04/17 10:41 Gamma Globulins 1.7 g/dL (0.8-1.7) 11/04/17 10:41 Abnorm Protein Band 1 see below 11/04/17 10:41 PEP Interpretation see below H 11/04/17 10:41 PTH Intact 253.2 pg/mL (15-65) H 11/04/17 10:41 Urine Color Yellow (Yellow) 11/03/17 09:06 Urine Turbidity Clear (Clear) 11/03/17 09:06 Urine pH 5.0 (5.0-7.0) 11/03/17 09:06 Ur Specific [place] 1.012 (1.003-1.030) 11/03/17 09:06 Urine Protein 100 mg/dl mg/dL (Negative) 11/03/17 09:06 Urine Glucose (UA) Neg mg/dL (Negative) 11/03/17 09:06 Urine Ketones Neg mg/dL (Negative) 11/03/17 09:06 Urine Blood Sm (Negative) 11/03/17 09:06 Urine Nitrite Neg (Negative) 11/03/17 09:06 Urine Bilirubin Neg (Negative) 11/03/17 09:06 Urine Urobilinogen < 2.0 mg/dL (<2.0) 11/03/17 09:06 Ur Leukocyte Esterase Sm (Negative) 11/03/17 09:06 Urine WBC (Auto) 7.0 /HPF (0.0-6.0) H 11/03/17 09:06 Urine RBC (Auto) 2.0 /HPF (0.0-6.0) 11/03/17 09:06 U Epithel Cells (Auto) 3.0 /HPF (0-13.0) 11/03/17 09:06 Urine Bacteria (Auto) 2+ /HPF (Negative) 11/03/17 09:06 Urine Total Volume 1250 11/06/17 13:20 Urine Creatinine 61.8 mg/dL (0.1-20.0) H 11/06/17 13:20 Ur Creatinine 24 Hour 0.8 (0.8-2.8) 11/06/17 12:00 Height (in) 69.0 inches 11/06/17 13:20 Weight (lb) 243.0 lbs 11/06/17 13:20 Creatinine Clearance 7 11/06/17 13:20 Ur Total Protein 24 Hr 1962.50 (2-200) H 11/06/17 12:00 Protein/Creatinin Ratio 3.10 11/03/17 09:06 Urine Sodium 114 mmol/L 11/03/17 09:06 Urine Total Protein 157 mg/dL (5-11.8) H 11/06/17 12:00 SHANITA Screen Negative (Negative) 11/04/17 10:41 Hepatitis A IgM Ab Non-reactive (NonReactive) 11/04/17 10:41 Hep Bs Antigen Non-reactive (Negative) 11/04/17 10:41 Hep B Core IgM Ab Non-reactive (NonReactive) 11/04/17 10:41 Hepatitis C Antibody Non-reactive (NonReactive) 11/04/17 10:41
--- NOTE | 2017-11-10 13:35 | Progress Note ---
Assessment and Plan Currently stable cardiac status. Continue current cardiac regimen. Heparin has been converted to Eliquis. Pt may discharge home from cardiac perspective. Recommend follow up in our office with Dr. Schmidt within 3-5 days of hospital discharge ([phone]). The patient has been seen in conjunction with Dr. Del Toro who agrees with the assessment and plan of care. - Patient Problems (1) Acute diastolic HF (heart failure) Current Visit: Yes Status: Acute (2) Atrial fibrillation Current Visit: Yes Status: Acute (3) ESRD (end stage renal disease) Current Visit: Yes Status: Acute (4) Hypertensive emergency Current Visit: Yes Status: Acute (5) Pulmonary HTN Current Visit: Yes Status: Chronic (6) Tobacco abuse Current Visit: Yes Status: Chronic Subjective Date of service: 11/10/17 Principal diagnosis: Acute HFpEF, CKD Interval history: pt seen in HD, no current complaints. Pt remains in AFib with CVR. Objective Last Vital Signs Temp 98.0 F 11/10/17 10:00 Pulse 72 11/10/17 12:30 Resp 20 11/10/17 10:00 BP 176/102 11/10/17 12:30 Pulse Ox 98 11/10/17 08:03 - Physical Examination General: No Apparent Distress HEENT: Positive: EOMI, Normocephaly, Mucus Membranes Moist Neck: Positive: neck supple, trachea midline, JVD/HJR (elevated) Cardiac: Positive: irregularly irregular, S1/S2 Lungs: Positive: clear to auscultation Neuro: Positive: Grossly Intact Abdomen: Positive: Soft, Active Bowel Sounds. Negative: Tender Skin: Positive: Clear. Negative: Rash Musculoskeletal: Normal Range of Motion Extremities: Absent: edema - Labs and Meds Comprehensive Metabolic Panel 11/10/17 Range/Units 05:41 Sodium 139 (137-145) mmol/L Potassium 4.9 (3.6-5.0) mmol/L Chloride 103.3 (98-107) mmol/L Carbon Dioxide 23 (22-30) mmol/L BUN 44 H (9-20) mg/dL Creatinine 4.4 H (0.8-1.5) mg/dL Glucose 92 (75-100) mg/dL Calcium 8.8 (8.4-10.2) mg/dL - Imaging and Cardiology EKG: image reviewed
[2017-11-10] MEDS ORDERED: APRESOLINE IV PRN (13:51)
[2017-11-10] MEDS: IMDUR PO SCH (15:13)
[2017-11-10] MEDS: ZYLOPRIM PO SCH (15:16)
[2017-11-10] MEDS: FLOMAX PO SCH (15:18)
[2017-11-10] MEDS: FLONASE NS SCH (15:24)
[2017-11-11] MEDS: TYLENOL PO SCH ×2 (05:59→14:24)
[2017-11-11] MEDS: APRESOLINE PO SCH ×2 (08:00→14:23)
[2017-11-11 08:31] LABS: Calcium 8.8 mg/dL (8.4-10.2)
--- NOTE | 2017-11-11 10:11 | Discharge Summary ---
Providers - Providers Date of Admission: 11/03/17 03:27 Attending physician: TAMMI ZAFAR MD 11/03/17 03:26 Consult to Physician [CONS] Stat Consulting Provider: CHRIS MARADIAGA Reason For Exam: fluid overload Place consult to:: Dr. Hewitt Notified:: Answering Service Phone number called:: [phone] Was contact made?: Yes If yes, spoke with:: Dr. Maradiaga Time called:: 03:22 Comment:: Dr. Mueller ( dr) spoke with Dr. Maradiaga 11/03/17 07:53 Consult to Physician [CONS] Routine Consulting Provider: ERNIE HAYWOOD Reason For Exam: CHF Place consult to:: Daphne Cardoso Notified:: yes Phone number called:: text message Was contact made?: Yes If yes, spoke with:: Daphne Time called:: 09:53 11/03/17 17:14 Consult to Dietitian/Nutrition [CONS] Routine Physician Instructions: Reason For Exam: Reason for Consult: Malnutrition 11/08/17 12:28 Consult to Physician [CONS] Routine Consulting Provider: GITA DEL RIO Reason For Exam: PERMCATH INSERTION 11/09 Place consult to:: vascular Notified:: a service Phone number called:: [phone] Was contact made?: Yes Time called:: 15:44 11/08/17 12:31 Consult to Case Management [CONS] Routine Services Needed at Discharge: Other Notified:: skilled nursing case manager Additional Physician Instructions: OUTPATIENT HEMODIALYSIS - [facility] REQUESTS [facility] Primary care physician: ROVERTO GUEVARA Hospitalization Condition: Stable Hospital course: 76 year old -[place] male with past medical history significant for CHF , hypertension presented to the emergency department complaining of shortness of breath that started last night. Shortness of breath is getting worse with exertion no alleviating factors identified. Patient admitted for wheezing, cough and bilateral leg swelling. Patient denied chest pain, nausea, vomiting. Patient had history of CHF and stop taking medications 2 years ago. Didn't see a doctor for the last 2 years. Acute hypoxic respiratory failure - oxygen support - VQ scan low probability for PE - Resolved Acute on chronic diastolic CHF - beta drew, cardiology consult obtained, echo showed diastolic CHF Hypertensive urgency - Hydralazine and is on amlodipine, carvedilol, hydralazine when necessary - Will readjust due to elevated BP if no improvement with dialysis Acute Kidney Injury on chronic renal failure - Nephrology is following -Awaiting chair time for outaptient dialysis - Par cath place and patient dialyzed Atrial fibrillation - Patient was on heparin and now changed to eliquis 5MG PO BID -Follow with cardioilogy 3-5 days from discharge day Hypercoagluable state -ON Eliquis Malnutrition - Nutrition consult Medication noncompliance - Patient is counseled about medication adherence Tobacco abuse - Patient is counseled about cessation of smoking Metabolic acidosis -Expect improvement with Dialysis DVT prophylaxis - on therapeutic heparin Disposition - continue inpatient care Disposition: DC-01 TO HOME OR SELFCARE Time spent for discharge: 35 MINS Exam - Constitutional Vitals: Temp Pulse Resp BP Pulse Ox 98.4 F 77 20 117/72 98 11/11/17 06:10 11/11/17 08:18 11/11/17 06:10 11/11/17 08:18 11/11/17 08:18 Plan Activity: advance as tolerated, fall precautions Diet: low salt, renal Special Instructions: record daily BP diary, record blood sugar diary, smoking cessation Follow up with: ROVERTO GUEVARA MD [Primary Care Provider] - 7 Days EN HAQUE MD [Staff Physician] - 3 Days RUTHANN PEREZ MD [Staff Physician] - 7 Days Prescriptions: Apixaban [Eliquis] 5 mg PO Q12HR #60 tablet hydrALAZINE [Apresoline TAB] 100 mg PO TID #90 tablet ISOSORBIDE MONOnitrate [Imdur ER] 30 mg PO QDAY #30 tablet Metoprolol [Lopressor] 100 mg PO BID #60 tablet
[2017-11-11] MEDS: FLONASE NS SCH (10:19)
[2017-11-11] MEDS: ZYLOPRIM PO SCH (10:22)
[2017-11-11] MEDS: FLOMAX PO SCH (10:23)
[2017-11-11] MEDS: ELIQUIS PO SCH (10:24)
[2017-11-11] MEDS: LOPRESSOR PO SCH (10:30)
[2017-11-11] MEDS: IMDUR PO SCH (10:30)
[2017-11-11 14:25] VITALS: BP 134/99
--- NOTE | 2017-11-11 14:43 | Progress Note ---
Assessment and Plan Impression: * End stage renal disease --24h urine CrCl 7ml/min * Hypertension * Atrial fibrillation * Proteinuria * Diastolic heart failure * Metabolic acidosis * Peripheral edema Plan: * Patient is s/p HD yesterday via IJ permcath * Outpatient hemodialysis arranged at [facility] - start on Thursday * Anticoagulation per cardiology * Continue current antiHTN medications * Avoid potential nephrotoxins * Dose medications for renal function * Stable for discharge from a renal standpoint Subjective Date of service: 11/11/17 Principal diagnosis: Acute HFpEF, CKD Interval history: Patient has no complaints. Tolerated dialysis yesterday. Objective - Vital Signs Vital signs: Vital Signs - 12hr 11/11/17 11/11/17 11/11/17 06:10 08:00 08:18 Temperature 98.4 F Pulse Rate 80 65 77 Respiratory 20 Rate Blood Pressure 115/57 94/71 117/72 O2 Sat by Pulse 97 98 Oximetry 11/11/17 11/11/17 11/11/17 08:42 10:00 10:30 Temperature Pulse Rate 70 65 Respiratory 18 Rate Blood Pressure 94/71 O2 Sat by Pulse 97 97 Oximetry 11/11/17 14:23 Temperature Pulse Rate 78 Respiratory Rate Blood Pressure 134/99 O2 Sat by Pulse Oximetry - General Appearance General appearance: well-developed, well-nourished EENT: ATNC Respiratory: Present: Clear to Ascultation Cardiology: regular, S1S2 Gastrointestinal: normal, no tenderness, no distended Integumentary: no rash, warm and dry Neurologic: no focal deficit Musculoskeletal: other (1+ edema) Psychiatric: cooperative - Lab 11/09/17 05:47 11/11/17 07:16 Most recent lab results Calcium 8.8 mg/dL (8.4-10.2) 11/11/17 07:16 Phosphorus 3.80 mg/dL (2.5-4.5) 11/04/17 10:41 Urine Creatinine 61.8 mg/dL (0.1-20.0) H 11/06/17 13:20 Ur Total Protein 24 Hr 1962.50 (2-200) H 11/06/17 12:00 Urine Sodium 114 mmol/L 11/03/17 09:06 Urine Total Protein 157 mg/dL (5-11.8) H 11/06/17 12:00
== END 2017-11-11 16:51 | disposition home or self-care (01) | DRG 673 ==
LOC: ED 00:48 → 4A 03:27
PROVIDERS: ADMIT Family Medicine; ATTEND Internal Medicine
PROC: 0JH63XZ Insertion of Tunneled Vascular Access Device into Chest Subcutaneous Tissue and Fascia, Percutaneous Approach (ICD-10-PCS; principal; 2017-11-09)
PROC: 02HV33Z Insertion of Infusion Device into Superior Vena Cava, Percutaneous Approach (ICD-10-PCS; principal; 2017-11-09)
PROC: 5A1D70Z Performance of Urinary Filtration, Intermittent, Less than 6 Hours Per Day (ICD-10-PCS; 2017-11-09)
PROC: 5A1D70Z Performance of Urinary Filtration, Intermittent, Less than 6 Hours Per Day (ICD-10-PCS; 2017-11-10)
DX: N17.9 Acute kidney failure, unspecified (principal); I21.A1 Myocardial infarction type 2; I50.33 Acute on chronic diastolic (congestive) heart failure; J96.01 Acute respiratory failure with hypoxia; I42.9 Cardiomyopathy, unspecified; I13.2 Hypertensive heart and chronic kidney disease with heart failure and with stage 5 chronic kidney disease, or end stage renal disease; E46 Unspecified protein-calorie malnutrition; D68.59 Other primary thrombophilia; E87.2 Acidosis; I16.1 Hypertensive emergency; N18.6 End stage renal disease; I16.0 Hypertensive urgency; Z79.01 Long term (current) use of anticoagulants; Z91.14 Patient's other noncompliance with medication regimen; Z71.6 Tobacco abuse counseling; G62.1 Alcoholic polyneuropathy; F12.21 Cannabis dependence, in remission; F10.21 Alcohol dependence, in remission; I27.20 Pulmonary hypertension, unspecified; E66.01 Morbid (severe) obesity due to excess calories; J44.9 Chronic obstructive pulmonary disease, unspecified; I70.0 Atherosclerosis of aorta; I48.0 Paroxysmal atrial fibrillation; D69.1 Qualitative platelet defects; F17.210 Nicotine dependence, cigarettes, uncomplicated; J45.909 Unspecified asthma, uncomplicated; N40.0 Benign prostatic hyperplasia without lower urinary tract symptoms; M10.9 Gout, unspecified; E83.51 Hypocalcemia; E87.5 Hyperkalemia; Z68.33 Body mass index [BMI] 33.0-33.9, adult; Z99.2 Dependence on renal dialysis
CPT/HCPCS: 36415; 36558; 71045; 76770; 77001; 78582; 80048; 80053; 80074; 81001; 82565; 82570; 82575; 82962; 83880; 83970; 84100; 84156; 84165; 84166; 84300; 84484; 85014; 85018; 85025; 85049; 85379; 85520; 85610; 85730; 86038; 93005; 93010; 93306; 94760; 96374; 99291; 99406; A9540; A9558; C1750; J0690; J1644; J1940; J2250; J3010; J7030; J7050

== ENCOUNTER 2018-11-01 16:03 | Emergency (ER) | payer MEDICARE ==
--- NOTE | 2018-11-01 16:16 | Emergency Department Report ---
Blank Doc - Documentation Documentation: This is a 77-year-old male that presents with permacath dislocation. Patient went to dialysis and was told his cath is displaced. Stated missed his dialysis today due to that. This initial assessment diagnostic orders/clinical plan/treatment(s) is/are subject to change based on patient's health status, clinical progression and re- assessment by fellow clinical providers in the ED. Further treatment and workup at subsequent clinical providers discretion. Patient/guardians urged not to elope from ED s their condition may be serious if not clinically assessed and managed. Initial orders include: 1-Patient sent to MAIN ED for further evaluation and treatment 2- Labs
[2018-11-01 17:02] LABS: Basophils # (Auto) 0.1 K/mm3 (0.0-0.1); Eosinophils # (Auto) 0.1 K/mm3 (0.0-0.4); Eosinophils % (Auto) 1.9 % (0.0-4.3); Hematocrit 41.9 % (35.5-45.6); Hemoglobin 13.9 gm/dl (11.8-15.2); Lymphocytes # (Auto) 1.4 K/mm3 (1.2-5.4); Lymphocytes % (Auto) 21.9 % (13.4-35.0); Mean Corpuscular HGB Conc 33 % (32-34); Mean Corpuscular Volume 93 fl (84-94); Monocytes # (Auto) 0.9 K/mm3 (0.0-0.8); Monocytes % (Auto) 14.1 % (0.0-7.3); Platelet Count 264 K/mm3 (140-440); Red Blood Count 4.53 M/mm3 (3.65-5.03); Red Cell Distribution Width 16.1 % (13.2-15.2)
[2018-11-01 17:39] LABS: Calcium 8.9 mg/dL (8.4-10.2)
--- NOTE | 2018-11-01 20:40 | Emergency Department Report ---
ED General Adult HPI - General Chief complaint: Tube Replacement Stated complaint: DIALYSIS CATHER COMING LOOSE Time Seen by Provider: 11/01/18 16:14 Source: patient Mode of arrival: Ambulatory Limitations: No Limitations - History of Present Illness Initial comments: Patient is 77 years old male with history of end stage renal disease on hemodialysis. Patient presented to the ER after he went for dialysis today and he was told that he is right internal jugular vein PermCath is loose and they're afraid to do dialysis because of that. Patient denied any other symptoms. Patient specifically denied any shortness of breath, chest pain, abdominal pain, nausea or vomiting. Severity scale (0 -10): 0 - Related Data Home Medications Medication Instructions Recorded Confirmed Last Taken Acetaminophen [Shake That Ache] 500 mg PO Q6H 11/03/17 11/03/17 Unknown Albuterol Sulfate [Ventolin HFA] 2 puff IH Q4H PRN 11/03/17 11/03/17 11/02/17 Allopurinol 300 mg PO DAILY 11/03/17 11/03/17 11/02/17 Fluticasone [Flonase] 1 spray NS QDAY 11/03/17 11/03/17 11/02/17 Loratadine [Claritin] 10 mg PO DAILY 11/03/17 11/03/17 11/02/17 Tamsulosin [Flomax] 0.4 mg PO QDAY 11/03/17 11/03/17 11/02/17 Previous Rx's Medication Instructions Recorded Last Taken Type Apixaban [Eliquis] 5 mg PO Q12HR #60 tablet 11/11/17 Unknown Rx ISOSORBIDE MONOnitrate [Imdur ER] 30 mg PO QDAY #30 tablet 11/11/17 Unknown Rx Metoprolol [Lopressor] 100 mg PO BID #60 tablet 11/11/17 Unknown Rx hydrALAZINE [Apresoline TAB] 100 mg PO TID #90 tablet 11/11/17 Unknown Rx Allergies Allergy/AdvReac Type Severity Reaction Status Date / Time No Known Allergies Allergy Unverified 11/03/17 01:36 ED Review of Systems ROS: Stated complaint: DIALYSIS CATHER COMING LOOSE Other details as noted in HPI Comment: All other systems reviewed and negative Constitutional: denies: chills, fever Respiratory: denies: cough, orthopnea, shortness of breath, SOB with exertion, SOB at rest, wheezing Cardiovascular: denies: chest pain, palpitations Gastrointestinal: denies: abdominal pain, nausea, vomiting, diarrhea Musculoskeletal: denies: back pain Neurological: denies: headache, weakness ED Past Medical Hx - Past Medical History Hx Congestive Heart Failure: Yes - Social History Smoking Status: Never Smoker Substance Use Type: None - Medications Home Medications: Home Medications Medication Instructions Recorded Confirmed Last Taken Type Acetaminophen [Shake That Ache] 500 mg PO Q6H 11/03/17 11/03/17 Unknown History Albuterol Sulfate [Ventolin HFA] 2 puff IH Q4H PRN 11/03/17 11/03/17 11/02/17 History Allopurinol 300 mg PO DAILY 11/03/17 11/03/17 11/02/17 History Fluticasone [Flonase] 1 spray NS QDAY 11/03/17 11/03/17 11/02/17 History Loratadine [Claritin] 10 mg PO DAILY 11/03/17 11/03/17 11/02/17 History Tamsulosin [Flomax] 0.4 mg PO QDAY 11/03/17 11/03/17 11/02/17 History Apixaban [Eliquis] 5 mg PO Q12HR #60 tablet 11/11/17 Unknown Rx ISOSORBIDE MONOnitrate [Imdur ER] 30 mg PO QDAY #30 tablet 11/11/17 Unknown Rx Metoprolol [Lopressor] 100 mg PO BID #60 tablet 11/11/17 Unknown Rx hydrALAZINE [Apresoline TAB] 100 mg PO TID #90 tablet 11/11/17 Unknown Rx ED Physical Exam - General Limitations: No Limitations General appearance: alert, in no apparent distress - Head Head exam: Present: atraumatic, normocephalic, normal inspection - Eye Eye exam: Present: normal appearance - ENT ENT exam: Present: normal exam, normal orophraynx, mucous membranes moist - Neck Neck exam: Present: normal inspection, full ROM. Absent: tenderness, meningismus, lymphadenopathy, thyromegaly - Respiratory Respiratory exam: Present: normal lung sounds bilaterally, other (right internal jugular vein permacath is in place but is loose, no erythema or discharge.) - Cardiovascular Cardiovascular Exam: Present: regular rate, normal rhythm, normal heart sounds - GI/Abdominal GI/Abdominal exam: Present: soft, normal bowel sounds. Absent: distended, tenderness, guarding, rebound, rigid, organomegaly, mass, bruit, pulsatile mass - Extremities Exam Extremities exam: Present: normal inspection, full ROM, normal capillary refill. Absent: calf tenderness - Back Exam Back exam: Present: normal inspection, full ROM. Absent: tenderness, CVA tenderness (R), CVA tenderness (L), muscle spasm - Neurological Exam Neurological exam: Present: alert, oriented X3, CN II-XII intact - Skin Skin exam: Present: warm, intact, normal color ED Course Vital Signs 11/01/18 16:16 Temperature 97.8 F Pulse Rate 65 Respiratory 16 Rate Blood Pressure 147/87 [Left] O2 Sat by Pulse 95 Oximetry - Consultations Consultation #1: 11/01/18 22:16 I discussed the patient with Dr. Harris, he advised that patient can be discharge and follow up with him in the office in the morning. ED Medical Decision Making - Lab Data Result diagrams: 11/01/18 16:41 11/01/18 16:41 Critical care attestation.: If time is entered above; I have spent that time in minutes in the direct care of this critically ill patient, excluding procedure time. ED Disposition Clinical Impression: ESRD (end stage renal disease), Complication of vascular access for dialysis Disposition: DC-01 TO HOME OR SELFCARE Is pt being admited?: No Condition: Stable Instructions: Chronic Kidney Disease (ED) Additional Instructions: Follow-up with Dr. Harris in the morning. Referrals: TEJAL HARRIS MD [Staff Physician] - 24 Hours
[2018-11-01 22:43] VITALS: BP 151/88
--- NOTE | 2018-11-01 23:07 | XRay Report ---
FINAL REPORT PROCEDURE: XR CHEST 1V AP TECHNIQUE: Chest radiograph anteroposterior view. CPT 38920 HISTORY: IJ PERMACATH CHECK COMPARISON: November 03, 2017 FINDINGS: Heart: Mild enlargement. Mediastinum/Vessels: Aorta is calcified Lungs/Pleural space: No focal infiltrate. Small right pleural effusion. Bony thorax: No acute osseous abnormality. Life support devices: Central catheter on the right extends to the superior vena cava. IMPRESSION: No acute cardiopulmonary abnormality.
== END 2018-11-01 22:43 | disposition home or self-care (01) ==
LOC: ED 16:03
DX: T82.898A Other specified complication of vascular prosthetic devices, implants and grafts, initial encounter (principal); N18.6 End stage renal disease; I50.9 Heart failure, unspecified; Z99.2 Dependence on renal dialysis; Y84.8 Other medical procedures as the cause of abnormal reaction of the patient, or of later complication, without mention of misadventure at the time of the procedure
CPT/HCPCS: 36415; 71045; 80048; 85025; 93005; 93010